=== PATIENT | male | born 1935 | race Caucasian/White ===

== ENCOUNTER → 2016-10-16 | Outpatient (CLI) | payer MEDICARE ==
[2016-10-16 12:47] LABS: BASO ABS # 0.07 K/uL (0-0.2); COMPLETE YES; HEMATOCRIT 44.9 % (42-52); IG% 0.3 %; LYMPH % 30.5 %; LYMPH ABS # 2.16 K/uL (1.2-3.4); MEAN CELL VOLUME 95.9 fL (80-100); MEAN CORPUSCULAR HGB CONC 32.3 g/dl (32-36); MEAN PLATELET VOLUME 10.5 fL (7.4-10.4); MONO % 11.3 %; NEUT % 53.9 %; PLATELET COUNT 238 K/uL (130-400); RED BLOOD COUNT 4.68 M/uL (4.7-6.1); WHITE BLOOD COUNT 7.08 K/uL (4.8-10.8)
[2016-10-16 13:05] LABS: CALCIUM 8.6 mg/dl (8.5-10.1)
[2016-10-16 13:11] LABS: ESTIMATED AVERAGE GLUCOSE 117 mg/dl; HA1C FLAG Normal (Normal)
[2016-10-16 13:21] LABS: ALKALINE PHOSPHATASE 61 U/L (45-117); ALT/SGPT 45 U/L (12-78); AST/SGOT 32 U/L (15-37); BLOOD UREA NITROGEN 16 mg/dl (7-18); CARBON DIOXIDE 32 mmol/L (21-32); CHLORIDE 103 mmol/L (98-107); CHOLESTEROL 156 mg/dl (0-200); CHOLESTEROL/HDL RATIO 3.5; GLUCOSE 90 mg/dl (70-99); HDL CHOLESTEROL 44 mg/dl; POTASSIUM 3.9 mmol/L (3.5-5.1); SODIUM 141 mmol/L (136-145); TRIGLYCERIDES 114 mg/dl (0-150); VERY LOW DENSITY LIPOPROT CALC 23 mg/dl
== END | disposition home or self-care (01) ==
LOC: C.LABSPEC 12:15
PROVIDERS: ATTEND Internal Medicine
DX: I10 Essential (primary) hypertension (principal); E78.5 Hyperlipidemia, unspecified; R73.9 Hyperglycemia, unspecified; M19.90 Unspecified osteoarthritis, unspecified site

== ENCOUNTER → 2017-04-23 | Outpatient (CLI) | payer MEDICARE ==
[2017-04-23 13:30] LABS: BLOOD UREA NITROGEN 13 mg/dl (7-18); BUN/CREATININE RATIO 12.3 (10-20); CALCIUM 8.7 mg/dl (8.5-10.1); CARBON DIOXIDE 32 mmol/L (21-32); CHLORIDE 100 mmol/L (98-107); CREATININE 1.05 mg/dl (0.60-1.40); GLUCOSE 90 mg/dl (70-99); POTASSIUM 3.5 mmol/L (3.5-5.1); SODIUM 137 mmol/L (136-145)
== END | disposition home or self-care (01) ==
LOC: C.LABSPEC 11:55
PROVIDERS: ATTEND Internal Medicine
DX: I10 Essential (primary) hypertension (principal)

== ENCOUNTER 2023-05-19 11:42 | Inpatient (IN) ==
--- OUTSIDE RECORDS SUMMARY | 2023-05-19 11:47 | External Medical Summary | Continuity of Care Document ---
Author Name Unknown Organization [facility] [address] [facility] Address [address] [place], [place] [id number] Care Team Providers Care Installer Name Role Phone Susan Lugo Primary Care Physician [phone] Encounter [facility] [id number] Date(s): 03/13/23 - 03/13/23 [facility] [address], [address] [place] [address] [phone] Encounter Diagnosis Benign hypertension without congestive heart failure(Discharge Diagnosis) - 03/13/23 Osteoarthritis of knees, bilateral(Discharge Diagnosis) - 03/13/23 Unintentional weight loss(Discharge Diagnosis) - 03/13/23 Systolic murmur(Discharge Diagnosis) - 03/13/23 Dementia(Discharge Diagnosis) - 03/13/23 Vaccination declined(Discharge Diagnosis) - 03/13/23 Abnormal weight loss(Final) - Essential (primary) hypertension(Final) - Leukocytosis(Discharge Diagnosis) - 03/13/23 Lymphocytosis(Discharge Diagnosis) - 03/14/23 Atypical lymphocytes present on peripheral blood smear(Discharge Diagnosis) - 03/14/23 Discharge Disposition: Home or Self Care Attending Physician: ARIS Lugo Jessica A Allergies, Adverse Reactions, Alerts No Known Allergies Assessment and Plan Extracted from: Title:annual check in Author:ARIS Lugo Je ssica A Date:03/13/23 1.Benign hypertension with out congestive heart failure Benignhypertension without congestive heart failure is chronicand well controlled, but BP is actuallylow today. Goal SBP <130 and DBP <80 mmHg. Given BP is below 100/60 mmHg, age and comorbidities we will plan to discontinue HCTZ 12.5 mg once daily in order to help prevent falls and dizziness. Written instructions were provided to . We will have him follow-up again in 6 months for recheck as they declined a sooner appointment. 2.Osteoarthritis of knees, bilateral Bilateral osteoarthritis of the knees is chronic and unchanged. Goal is reduced pain with good quality of life. For now patientfeels pain is manageable and symptoms are not bothersome enough to take any OTC medications. Follow-up again in 6 months. 3.Unintentional weight loss Unintentional weight loss is chronic andon review of chart patient has lostslightly more than 5%of his total body weight in the last year. and patient denies any significant changes in routineor eating habits. CBC with differential, TSH, CMP, A1c, ESR, CRPand HIV screen ordered. If labs are unrevealingwould then consider also performing chest x-ray. 4.Systolic murmur Systolic murmur is chronic andin reviewing documentationmurmur is louder today. Patient is asymptomatic from a cardiac standpoint. I did discuss proceeding with echocardiogram, whichat this time he declinesas he admits that if there were something abnormal he would not be interested in any intervention given his age. Wifeagreed as well. Advised to follow-up if he would develop any shortness of breath, exertional dizziness, palpitations, lower extremity edema, abdominal distentionor new symptoms. They agreed. 5.Dementia Dementia is chronic,mild to moderate and has been progressing per history. Wifeis interested in having him try medication and patient was agreeable. We will have him try donepezil 5 mg, 1 tab p.o.nightlyand reviewed that we could consider increasing dose after 1 to 2 months. They did declined to follow-up at that time, but preferred to follow-up again in 6 months. So advised the patient as NOT to be driving due to risk of self injury and/or injury to others. He agreed. 6.Vaccination declined Patient was counseled on and recommended to receive seasonal influenza vaccine, Shingrix seriesand pneumococcal immunizations that he declines. declines them as well. Medications Aspirin Low Dose 81 mg oral delayed release tablet Start: 01/19/21 9:45:00 EDT, 1 tab, PO, Daily Start Date: 01/19/21 Status: Ordered donepezil 5 mg oral tablet Start: 03/13/23 14:23:00 EDT, 1 tab, PO, qhs, Disp# 90 tab, Refills: 3, Pharmacy: [facility]/pharmacy #[id number] Start Date: 03/13/23 Stop Date: 03/07/24 Status: Ordered losartan 100 mg oral tablet Start: 10/05/21 16:28:00 EDT, 1 tab, PO, Daily, Disp# 90 tab, Refills: 3, TAKE 1 TABLET BY MOUTH EVERY DAY, Pharmacy: [id number] Start Date: 10/05/21 Stop Date: 09/30/22 Status: Ordered Metoprolol Succinate ER 50 mg oral tablet, extended release Start: 10/05/21 16:28:00 EDT, 1 tab, PO, Daily, Disp# 90 tab, Refills: 3, TAKE 1 TABLET BY MOUTH EVERY DAY, Pharmacy: [id number] Start Date: 10/05/21 Stop Date: 09/30/22 Status: Ordered Mental Status 03/13/23 Barriers to Learning one year None evide nt Mandatory Health Literacy Documentation Yes Health Literacy Communication Barriers N ever Primary Language Korean Problem List Condition Confirmation Course Effective Dates Status H ealth Status Informant Benign essential HTN Confirmed Active Osteoarthritis of knees, bilateral Confirmed Active Dementia Confirmed Active Skin lesion Confirmed Active Diagnosis Diagnosis Type Effective Dates Health Status Clinical Service Informant Osteoarthritis of knees, bilateral Discharge Diagnosis 03/13/23 Non-Specified Unintentional weight loss Discharge Diagnosis 03/13/23 Non-Specified Benign hypertension without congestive heart failure Discharge Diagnosis 03/13/23 Non-Specified Systolic murmur Discharge Diagnosis 03/13/23 Non-Specified Dementia Discharge Diagnosis 03/13/23 Non-Specified Leukocytosis Discharge Diagnosis 03/13/23 Non-Specified Vaccination declined Discharge Diagnosis 03/13/23 Lymphocytosis Discharge Diagnosis 03/14/23 Non-Specified Atypical lymphocytes present on peripheral blood smear Discharge Diagnosis 03/14/23 Non-Specified Procedures Procedure Date Related Diagnosis Body Site Status None Completed Results Laboratory List Name Date Pathologist Review Smear Panel (PATH REV IEW SMR PKG) 03/13/23 C Reactive Protein, Quantitation (CRP QU ANTITATION) 03/13/23 Complete Blood Count w Differential (CBC ,DIFFH) 03/13/23 Comprehensive Metabolic Panel (COMP META B PANEL) 03/13/23 Erythrocyte Sedimentation Rate (SEDIMENT ATION RATE) 03/13/23 HIV Screen w Reflex (HIV AG/AB SCREENING ) 03/13/23 Hemoglobin A1C (HEMOGLOBIN, A1C) 3 Lipid Profile (LIPOPROTEINS) 03/13/23 Thyroid Stimulating Hormone (TSH) Most recent to oldest [Refer ence Range]: 1 2 CReacProt [<0.50 mg/dL] 1.19 mg/dL *HI* (03/13/23 2:41 PM) eGFR CKD-EPI [>60 mL/min/1.7 3 m2] 55 mL/min/1.73 m2 1 *LOW* (03/13/23 2:41 PM) Estimated Average Glucose 114 mg/dL 2 (03/13/23 2:41 PM) HIV Ag/Ab Screening [NR] NONREACTIVE *Unknown* (03/13/23 2:41 PM) Non-HDL 86 mg/dL 3 (03/13/23 2:41 PM) Smr (Path Rev) Technical portion co mplete. Interpretation to follow. *Unknown* (03/13/23 3:24 PM) Imm. Retics [5.0-25.0 %] 8.5 % (03/13/23 3:24 PM) Polychromasia INCREASED *Unknown* (03/13/23 3:24 PM) Platelet Morphology NORMAL *Unknown* (03/13/23 3:24 PM) Estimated CrCl 43.88 mL/min (03/13/23 3:21 PM) Retic Hgb [30.8-36.6 pg] 33.9 pg 4 (03/13/23 3:24 PM) MPV [9.0-12.2 fL] 8.8 fL *LOW* (03/13/23 3:24 PM) 8.6 fL 5 *LOW* (03/13/23 2:41 PM) Immature Gran% 0.0 % (03/13/23 3:24 PM) PERP ORDERED % (03/13/23 2:41 PM) Neut% 19.0 % (03/13/23 3:24 PM) PERP ORDERED % (03/13/23 2:41 PM) Lymph% 77.0 % 6 (03/13/23 3:24 PM) PERP ORDERED % (03/13/23 2:41 PM) Bowman% 3.0 % (03/13/23 3:24 PM) PERP ORDERED % (03/13/23 2:41 PM) Baso% 0.0 % (03/13/23 3:24 PM) PERP ORDERED % (03/13/23 2:41 PM) Eos% 1.0 % (03/13/23 3:24 PM) PERP ORDERED % (03/13/23 2:41 PM) Immat Gran, Abs [0-0.4 K/uL] 0.00 K/uL (03/13/23 3:24 PM) PERP ORDERED K/uL 7 (03/13/23 2:41 PM) Neut, Abs [2.0-7.7 K/uL] 4.58 K/uL (03/13/23 3:24 PM) PERP ORDERED K/uL (03/13/23 2:41 PM) Lymph, Abs [1.0-3.4 K/uL] 18.55 K/uL *HI* (03/13/23 3:24 PM) PERP ORDERED K/uL (03/13/23 2:41 PM) Bowman, Abs [0-1.0 K/uL] 0.72 K/uL (03/13/23 3:24 PM) PERP ORDERED K/uL (03/13/23 2:41 PM) Baso, Abs [0-0.1 K/uL] 0.00 K/uL (03/13/23 3:24 PM) PERP ORDERED K/uL (03/13/23 2:41 PM) Eos, Abs [0-0.5 K/uL] 0.24 K/uL (03/13/23 3:24 PM) PERP ORDERED K/uL (03/13/23 2:41 PM) Type of Diff: MANUAL *Unknown* (03/13/23 3:24 PM) PERP ORDERED *Unknown* (03/13/23 2:41 PM) RDW [11.5-14.2 %] 13.7 % (03/13/23 3:24 PM) 13.6 % (03/13/23 2:41 PM) Anion Gap [5-14 mmol/L] 7 mmol/L (03/13/23 2:41 PM) Alb [3.5-5.0 g/dL] 4.1 g/dL (03/13/23 2:41 PM) Alk Phos [38-126 unit/L] 99 unit/L (03/13/23 2:41 PM) ALT [<50 unit/L] 24 unit/L (03/13/23 2:41 PM) AST [15-46 unit/L] 37 unit/L (03/13/23 2:41 PM) BUN [7-20 mg/dL] 24 mg/dL *HI* (03/13/23 2:41 PM) Ca [8.4-10.2 mg/dL] 8.8 mg/dL (03/13/23 2:41 PM) Chol/HDL 3 (03/13/23 2:41 PM) Chol [125-200 mg/dL] 121 mg/dL *LOW* (03/13/23 2:41 PM) Cl- [96-107 mmol/L] 101 mmol/L (03/13/23 2:41 PM) HCO3 [22-30 mmol/L] 33 mmol/L *HI* (03/13/23 2:41 PM) Cret [0.70-1.30 mg/dL] 1.26 mg/dL (03/13/23 2:41 PM) ESR [0-40 mm/hr] 48 mm/hr 8 *HI* (03/13/23 2:41 PM) HbA1c [4.0-6.0 %] 5.6 % (03/13/23 2:41 PM) Glu [74-106 mg/dL] 178 mg/dL *HI* (03/13/23:41 PM) Hct [39-48 %] 41.9 % (03/13/23 3:24 PM) 41.6 % (03/13/23 2:41 PM) HDL [>35 mg/dL] 35 mg/dL *LOW* (03/13/23:41 PM) Hgb [13.0-17.0 g/dL] 13.4 g/dL (03/13/23 3:24 PM) 13.3 g/dL (03/13/23 2:41 PM) K [3.5-5.1 mmol/L] 4.6 mmol/L (03/13/23 2:41 PM) LDL Chol, Calculated [50-130 mg/dL] 63 mg/dL (03/13/23 2:41 PM) MCH [28-33 pg] 31.9 pg (03/13/23 3:24 PM) 32.4 pg (03/13/23 2:41 PM) MCHC [32-36 g/dL] 32.0 g/dL (03/13/23 3:24 PM) 32.0 g/dL (03/13/23 2:41 PM) MCV [81-96 fL] 99.8 fL *HI* (03/13/23 3:24 PM) 101.2 fL *HI* (03/13/23 2:41 PM) Na [137-145 mmol/L] 141 mmol/L (03/13/23 2:41 PM) Plts [150-350 K/uL] 246 K/uL (03/13/23 3:24 PM) 230 K/uL (03/13/23 2:41 PM) RBC [4.40-5.60 M/uL] 4.20 M/uL *LOW* (03/13/23 3:24 PM) 4.11 M/uL *LOW* (03/13/23 2:41 PM) Retics (abs) [16.7-96.7 K/uL] 73.1 K/uL (03/13/23 3:24 PM) Retic (%) [0.40-2.05 %] 1.74 % (03/13/23 3:24 PM) T Bili [0.2-1.3 mg/dL] 0.6 mg/dL (03/13/23 2:41 PM) Prot [6.3-8.2 g/dL] 7.5 g/dL (03/13/23 2:41 PM) TG [<200 mg/dL] 115 mg/dL (03/13/23 2:41 PM) TSH [0.47-4.68 uIU/mL] 1.34 uIU/mL 9 (03/13/23 2:41 PM) WBC [4.0-10.4 K/uL] 24.09 K/uL *HI* (03/13/23 3:24 PM) 23.58 K/uL *HI* (03/13/23 2:41 PM) 1Result Comment: Testing Performed By: Dept [facility]ology [facility] [address], [address] [place] [address] 2Result Comment: Testing Performed By: Dept [facility]ology [facility] [address], [address], [place] [address] 3Result Comment: Testing Performed By: Dept [facility]ology [facility] [address], [address] [place], [place] [address] 4Result Comment: Testing Performed By: Dept [facility]ology [facility] [address], [address], [place] [address] 5Result Comment: [facility], [address] [facility], [place] [address] 6Result Comment: [facility] CLL Lymphs 7Result Comment: Testing Performed By: Dept [facility]ology [facility] [address], [address], [place] [address] 8Result Comment: Testing Performed By: [facility], [address] [place], [place] [address] 9Result Comment: Testing Performed By: Dept of [facility]ology [facility] [address], [address], [place] [address] Vital Signs Most recent to oldest [Reference Range]: 1 Patient Weight 87.4 kg (03/13/23 1:58 PM) Temperature [36.5-37.9 DegC] 36.6 DegC (03/13/23 1:58 PM) Heart Rate 82 bpm (03/13/23 1:58 PM) Respiratory Rate 20 br/min (03/13/23 1:58 PM) Blood Pressure 98/56mmHg (03/13/23 1:58 PM) Cuff Pulse Pressure 42 mmHg (03/13/23 1:58 PM) BP Location # 1 Left Arm, Manual (03/13/23 1:58 PM) Social History Social History Type Response Tobacco Former smoker, Cigar ettes Smoking Status Never smoked cigaret jeremiah Sex Male [facility] Note * ARIS Lugo, Susan Smith: PERFORM Event Display: [facility] Note Authored Date: Chief Complaint Routine check up History of Present Illness Shamir presents with his , Milana,for follow-up of chronic HTN without history of CHF, bilateral osteoarthritis of the knees and dementia. HTN without history of CHF is chronic and well controlled. He does not monitor his BP at home.Compliant with hydrochlorothiazide 12.5 mg daily, [id number] mg daily, metoprololsuccinate 50 mg daily. Former smoker, but quit more than 30 years ago. No EtOH or recreational drug use.No regular exercise.+ dry cough per intermittently x 3-4 months. No chest pain, SOB, palpitations, tachycardia, dizziness, lightheadedness, weakness, near syncope, syncope, nausea, vomiting, diarrhea, constipation, LE edema, headaches, blurred vision, loss of vision, confusion or epistaxis. Bilateral knee osteoarthritis is chronic andhe says "it does not bother me." notes that heonly seems to have pain when walking,climbing stairs and attempting to stand after prolonged sitting. Pain when walking is a 2-3/10. No OTC medications tried. Does not follow with orthopedics. Chronic dementiahas gotten worseper his . Struggles with significant short-term memory loss. For example, Melecio today he is asked her multiple times when he is going to the doctor,why is he going to the doctor,askedwhat day it is, what year it is and how old he is, which is o ften a daily occurrence. He has not had any mood changes and is overall very happy. He and wifelive together. Their childrendo livewithin walking distance in front of their home.Children check in on themdaily. Wifedoes not allow him to drive on his own, but she will have him drive her short distances. She tells himwhere to go and where to turn. If he were to be by himself he would not know how to get places or how to get out of a parking lot. [facility], but not recently. Wifewould be interested in having him start medication that may help with memory. Also, weight is down 5.5 kg since the time of his last appointment in March 2022. doesnot feel anything has significantly changedin their routine. He eats 3 meals per day and rarelysnacks. Drinks primarily soda and water. Upon questioning, has noticed a dry cough intermittently for 3 to 4 months. Former smoker. No fever, chills, night sweats,nocturnal pain, nausea, vomiting, diarrhea, change in bowel habits, melena, hematochezia, pallor, petechial rashes, presyncope, syncope, SOB, wheezing, hemoptysis, palpitations or tachycardia. Review of Systems ROS:All other systems negative, except HPI. Physical Exam Vitals & Measurements T:36.6C HR:82(Monitored) RR:20 BP:98/56 SpO2:97% WT:87.4kg WT:87.400kg(Dosing) PHQ2 Data(Data Documented on:03/13/2023 13:58) Emotional health assessment NEGATIVE General: Alert and oriented, No acute distress.Pleasant elderly male w/ . Oriented to person and place, but not time. Eye: Pupils are equal, round and reactive to light, Extraocular movements are intact, Normal conjunctiva. HENT: Normocephalic. Neck: Supple, No lymphadenopathy, No thyromegaly. Respiratory: Lungs are clear to auscultation, Respirations are non-labored, Breath sounds are equal, Symmetrical chest wall expansion. Cardiovascular: Normal rate, Regular rhythm, + grade II-III/ MATTHEW loudest at 2nd ICS, RUSB, but audible throught precordium. No gallop, Good pulses equal in all extremities, Normal peripheral perfusion. No LE edema. Abdomen: Normoactive BS x 4. Soft. No tenderness, palpable masses or organomegaly. Lymphatics: No submandibular, anterior or posterior cervical adenopathy palpable. Musculoskeletal Normal gait. Integumentary: Warm, Allyn, No pallor. Neurologic: Alert, Oriented, Cranial Nerves II-XII are grossly intact. Cognition and Speech: Oriented, Speech clear and coherent, Functional cognition intact. Psychiatric: Cooperative, Appropriate mood & affect, Normal judgment, Nonsuicidal. Assessment/Plan 1.Benign hypertension without congestive heart failure Benignhypertension without congestive heart failure is chronicand well controlled, but BP is actuallylow today. Goal SBP <130 and DBP <80 mmHg. Given BP is below 100/60 mmHg, age and comorbidities we will plan to discontinue HCTZ 12.5 mg once daily in order to help prevent falls anddizziness. Written instructions were provided to . We will have him follow-up again in 6 mon ths for recheck as they declined a sooner appointment. 2.Osteoarthritis of knees, bilateral Bilateral osteoarthritis of the knees is chronic and unchanged. Goal is reduced pain with good quality of life. For now patientfeels pain is manageable and symptoms are not bothersome enough totake any OTC medications. Follow-up again in 6 months. 3.Unintentional weight loss Unintentional weight loss is chronic andon review of chart patient has lostslightly more than 5%of his total body weight in the last year. and patient denies any significant changes in routineor eating habits. CBC with differential, TSH, CMP, A1c, ESR, CRPand HIV screen ordered. If labs are unrevealingwould then consider also performing chest x-ray. 4.Systolic murmur Systolic murmur is chronic andin reviewing documentationmurmur is louder today. Patient is asymptomatic from a cardiac standpoint. I did discuss proceeding with echocardiogram, whichat thistime he declinesas he admits that if there were something abnormal he would not be interested in any intervention given his age. Wifeagreed as well. Advised to follow-up if he would develop any shortness of breath, exertional dizziness, palpitations, lower extremity edema, abdominal distentionor new symptoms. They agreed. 5.Dementia Dementia is chronic,mild to moderate and has been progressing per history. Wifeis interested in having him try medication and patient was agreeable. We will have him try donepezil 5 mg, 1 tabp.o.nightlyand reviewed that we could consider increasing dose after 1 to 2 months. They did declined to follow-up at that time, but preferred to follow-up again in 6 months. So advised the pa tient as NOT to be driving due to risk of self injury and/or injury to others. He agreed. 6.Vaccination declined Patient was counseled on and recommended to receive seasonal influenza vaccine, Shingrix seriesand pneumococcal immunizations that he declines. declines them as well. Problem List/Past Medical History Ongoing Benign essential HTN Dementia Osteoarthritis of knees, bilateral Skin lesion Procedure/Surgical History None Medications aspirin(Aspirin Low Dose 81 mg oral delayed release tablet), 81 mg= 1 tab, PO, Daily donepezil(donepezil 5 mg oral tablet), 5 mg= 1 tab, PO, qhs, 3 refills losartan(losartan 100 mg oral tablet), 100 mg= 1 tab, PO, Daily, 3 refills metoprolol(Metoprolol Succinate ER 50 mg oral tablet, extended release), 50 mg= 1 tab, PO, Daily, 3refills Allergies NKA Social History Smoking Status Never smoked cigarettes Alcohol - Denies Alcohol Use Employment/School Status:Retired Exercise - Does not exercise Substance Abuse - Denies Substance Abuse Tobacco Use:Former smoker Type:Cigarettes Family History Family history is negative Recommendations Health Maintenance Pending(in the next year) OverDue Body Mass Index due10/05/22and every 1year Adult Influenza Vaccine due11/23/22and every 1year Due Adult COVID-19 Vaccination due03/13/23Unknown Frequency Adult Tdap/Td Vaccine due03/13/23Unknown Frequency Medicare Annual Wellness Visit due03/13/23and every 1year Pneumococcal Vaccine Older Adults due03/13/23One-time only Shingles Vaccine due03/13/23One-time only Satisfied(in the past 1 year) Satisfied Lipid Screening on03/13/23.Satisfied by Contributor[facility]system, [facility] * MD Elise Olajumoke O: VERIFY MD Elise Olajumoke O: VERIFY, PERFORM Event Display: CP PB Part type Authored Date: Peripheral blood * MD Elise Olajumoke O: VERIFY MD Elise Olajumoke O: VERIFY, PERFORM Event Display: CP PB Dx Authored Date: RBCs are macrocytic and normochromic. There is lymphocytosis that is composed of mostly small mature appearing lymphoid cells with abnormal nuclear chromatin pattern. There are increased smudge cells. Prolymphocytes are present (~20%). Platelets are normal in number and morphology. The lymphocytosis is suggestive of a lymphoproliferative disorder. Flow cytometry recommended. Sirisha Elise MD (Electronically signed by) Verified: 03/14/2023 11:11 EDT Performing Location: [facility] Patient Care team information Care Team Personnel Name: ARIS Lugo Jessica A Position: Physician Asst Exmpt - Family Med Member Role: Primary Care Provider Address: Address: [address] [place] [id number]
--- NOTE | 2023-05-19 12:43 | XRay Report ---
XR chest 1V portable CLINICAL HISTORY: Dyspnea TECHNIQUE: Single frontal radiograph of the chest was obtained. Comparison: None available at the time of this dictation. FINDINGS: No lines and tubes are seen. The cardiomediastinal silhouette is normal. Prominence and cephalization of the vasculature is seen. Airspace opacities in the left lower lung. Trace left pleural effusion. IMPRESSION: 1. Cardiomegaly and mild pulmonary edema. 2. Left lower lung airspace opacity likely represent atelectasis with or without superimposed pneumo jordan and/or aspiration. ACT 112: Negative or not required by law. Electronically signed by: Triston Riley M.D. 05/19/2023 12:41 PM
[2023-05-19 12:51] LABS: Albumin Globulin Ratio 1.3 (0.9-2); Albumin Level 3.8 gm/dl (3.4-5.0); Bilirubin,Total 0.9 mg/dl (0.2-1.0); Calcium 8.5 mg/dl (8.6-10.3); Est GFR (African American) 66.4 ml/min; Est GFR (Non-African American) 57.3 ml/min; Potassium 4.3 mmol/L (3.5-5.1); Total Protein 6.8 gm/dl (6.0-8.3)
--- NOTE | 2023-05-19 13:01 | Emergency Department Note ---
Impression & Plan Acute non-ST elevation myocardial infarction (NSTEMI) ED Provider Note NAME: SHAMIR OLIVAREZ AGE: 87 SEX: M : 1935 ARRIVES VIA: Walk-In INFORMANT: Patient, ED PROVIDER(S): Andrez Pérez MD CHIEF COMPLAINT: Shortness of breath, back pain HPI: This is a pleasant 87-year-old gentleman presenting for shortness of breath and back pain. Patient is coming by his 2 daughters who state that last night, their mother was concerned and the patient was complaining about back pains, in the middle of his back. He also has some slight shortness of breath associated with this as well. He has not had any nausea or vomiting. Denies any history of cardiac disease, COPD, blood clots in the past. No fevers, chills. No one is sick around him. ROS: See above HPI for pertinent positives & negatives. A total of 10 systems reviewed and were otherwise negative. PAST MEDICAL HISTORY: See Below PAST SURGICAL HISTORY: See Below FAMILY HISTORY: See Below SOCIAL HISTORY: See Below HOME MEDICATIONS: See Below ALLERGIES: See Below VITALS: See Below PHYSICAL EXAMINATION: General: resting comfortably in no acute distress Head: Normocephalic and atraumatic Eyes: Normal inspection, extraocular muscles intact Ear, nose, throat: Normal external exam Neck: Normal range of motion Respiratory: lungs clear to auscultation bilaterally Cardiovascular: Regular rate/rhythm, no murmur GI: soft, nontender, no guarding or rebound Extremities: nontender, moves all extremities Neuro: The patient awake and alert, appropriately conversive, no focal deficits, symmetric faces Skin: Warm, dry, and intact MEDICAL DECISION MAKING: This is an 87-year-old male presenting for shortness of breath/back pain. Patient had moderate back pain last night, completely resolved at this time. He also complained of shortness of breath which also resolved at this time. -The patient has complete resolved symptoms at this time -Consider ACS, PE, dissection, pneumonia -Vital signs reviewed and within normal limits aside from borderline tachycardia -ECG independently interpreted by me with normal sinus rhythm, rate of 90, left axis deviation, normal NM, left bundle branch block, normal QTc, no ST segment elevations consistent with STEMI criteria -Patient has an elevated troponin over 3000 at this time, he continues to deny any chest pain -With history of shortness of breath, back pain, will rule out dissection or PE -CTA of the chest reveals no PE, CT of the ab/pelvis reveals no dissection, there is ascites noted -Heparin administered for NSTEMI -Patient admitted to hospitalist service Differential diagnosis: See above ER treatment provided: See below Diagnostics interpreted by me: ECG: See above Cardiac Monitoring: An order was placed for continuous cardiac monitoring. The monitor shows a rate of 98 with sinus rhythm. Laboratory studies: As stated above and show below. Imaging studies: See below. Critical Care Note: I have personally spent 42 minutes of critical care time in the direct management of this patient. This includes bedside care, interpretation of diagnostic studies, and testing, discussion with consultants, patient, and family members, and other required patient management activities. This 42 minutes is in excess of all separately billable procedures. Past Med/Surg History Medical History (Updated 05/19/23 @ 19:47 by Andrez Pérez MD) Leukemia Alzheimer disease Hypertension Social History Smoking Status: Former smoker Feels Safe at Home: Yes Allergies Allergies Allergy/AdvReac Type Severity Reaction Status Date / Time No Known Allergies Allergy Unverified 12/10/17 20:13 Home Meds Home Medications Medication Instructions Recorded Confirmed aspirin 81 mg capsule 81 mg PO DAILY 05/19/23 05/19/23 donepezil 5 mg tablet (Aricept) 5 mg PO HS 05/19/23 05/19/23 hydrochlorothiazide 12.5 mg tablet 12.5 mg 05/19/23 losartan 100 mg tablet 100 mg PO DAILY 05/19/23 05/19/23 metoprolol succinate 50 mg 50 mg PO DAILY 05/19/23 05/19/23 tablet,extended release 24 hr Results & Data (ED) Vital Signs Vital Signs - 24 hr 05/19/23 11:44 05/19/23 12:06 05/19/23 12:06 Temperature 36.6 C Temperature Source Temporal Artery Scan Pulse Rate 94 H 92 H Pulse Rate [Apical] 88 Pulse Rhythm Regular Pulse Rhythm [Apical] Regular Pulse Strength [Apical] Normal Respiratory Rate 19 16 Respiratory Effort / Characteristics Non-Labored Spontaneous Respiratory Depth Normal Respiratory Pattern Regular Blood Pressure 150/93 H Blood Pressure [Right Arm] 142/87 H Blood Pressure Mean 112 Blood Pressure Mean [Right Arm] 105 Blood Pressure Position [Right Arm] Semi-fowlers Pulse Oximetry 94 94 94 Oxygen Delivery Method Room Air Room Air Room Air Sepsis Recent Fever Within 48 Hours No Sepsis New/Unexplained Change in Mental Status N/A Sepsis Action Taken by Nursing No Action Required 05/19/23 12:08 05/19/23 12:19 05/19/23 12:51 Temperature Temperature Source Pulse Rate 93 H Pulse Rate [Apical] 88 Pulse Rhythm Pulse Rhythm [Apical] Regular Pulse Strength [Apical] Normal Respiratory Rate 19 Respiratory Effort / Characteristics Non-Labored Spontaneous Respiratory Depth Normal Respiratory Pattern Regular Blood Pressure Blood Pressure [Right Arm] 142/87 H Blood Pressure Mean Blood Pressure Mean [Right Arm] 105 Blood Pressure Position [Right Arm] Semi-fowlers Pulse Oximetry 94 94 Oxygen Delivery Method Room Air Room Air Sepsis Recent Fever Within 48 Hours Sepsis New/Unexplained Change in Mental Status Sepsis Action Taken by Nursing 05/19/23 14:34 05/19/23 15:00 Temperature Temperature Source Pulse Rate Pulse Rate [Apical] 84 95 H Pulse Rhythm Pulse Rhythm [Apical] Regular Pulse Strength [Apical] Normal Respiratory Rate 16 18 Respiratory Effort / Characteristics Non-Labored Spontaneous Non-Labored Spontaneous Respiratory Depth Normal Normal Respiratory Pattern Regular Regular Blood Pressure Blood Pressure [Right Arm] 129/95 153/101 H Blood Pressure Mean Blood Pressure Mean [Right Arm] 106 118 Blood Pressure Position [Right Arm] Semi-fowlers Semi-fowlers Pulse Oximetry 93 94 Oxygen Delivery Method Room Air Room Air Sepsis Recent Fever Within 48 Hours Sepsis New/Unexplained Change in Mental Status Sepsis Action Taken by Nursing Laboratory Data 05/19/23 12:10 05/19/23 12:10 Lab Results 05/19/23 05/19/23 05/19/23 Range/Units 12:10 13:09 14:05 WBC 24.98 H (4.8-10.8) K/ul RBC 4.01 L (4.70-6.10) M/uL Hgb 12.9 L (14.0-18.0) g/dl Hct 40.5 L (42.0-52.0) % MCV 101.0 H (80.0-100.0) fL MCH 32.2 (25.0-34.0) pg MCHC 31.9 L (32.0-36.0) g/dL RDW Std Deviation 50.5 H (36.4-46.3) fL RDW Coeff of Alysha 13.4 (11.5-14.5) % Plt Count 206 (130-400) K/uL MPV 8.6 L (9.4-12.4) fL Immature Gran % (Auto) 0.6 % Neut % (Auto) 25.1 % Lymph % (Auto) 66.3 % [place] % (Auto) 6.8 % Eos % (Auto) 0.6 % Baso % (Auto) 0.6 % Neut # (Auto) 6.28 (1.40-6.50) K/uL Lymph # (Auto) 16.56 H (1.20-3.40) K/uL [place] # (Auto) 1.70 H (0.11-0.59) K/uL Eos # (Auto) 0.14 (0.00-0.50) K/uL Baso # (Auto) 0.15 (0.00-0.20) K/uL Immature Gran # (Auto) 0.15 (0.01-0.20) K/uL RBC Morphology Unremarkable PT 11.0 (9.0-12.0) Seconds INR 1.0 (0.9-1.1) APTT 26 (21-31) Seconds PTT Ratio 0.9 D-Dimer 2320 H* (0-500) ug/L FEU Sodium 141 (136-145) mmol/L Potassium 4.3 (3.5-5.1) mmol/L Chloride 102 (98-107) mmol/L Carbon Dioxide 32 (21-32) mmol/L Anion Gap 7 (3-11) BUN 17 (6-23) mg/dl Creatinine 1.13 (0.6-1.4) mg/dl Est Cr Clr Drug Dosing 50.0 ml/min Est GFR ( Amer) 66.4 ml/min Est GFR (Non-Af Amer) 57.3 ml/min BUN/Creatinine Ratio 15.0 (10-20) Glucose 94 (70-99(Fasting)) mg/dl Calcium 8.5 L (8.6-10.3) mg/dl Magnesium 2.0 (1.7-2.4) mg/dl Total Bilirubin 0.9 (0.2-1.0) mg/dl AST 50 H (13-39) U/L ALT 19 (7-52) U/L Alkaline Phosphatase 106 H (34-104) U/L Troponin I High Sens 3421.8 H* 4714.5 H* D (0-20) pg/ml B-Natriuretic Peptide 611 H (0-100) pg/ml Total Protein 6.8 (6.0-8.3) gm/dl Albumin 3.8 (3.4-5.0) gm/dl Globulin 3.0 (2.5-4.0) gm/dl Albumin/Globulin Ratio 1.3 (0.9-2) Procalcitonin 0.42 (0-0.5) ng/ml Urine Color Urine Appearance (Clear) Urine pH (4.5-7.5) Ur Specific [place] (1.000-1.030) Urine Protein (Negative) Urine Glucose (UA) (Negative) Urine Ketones (Negative) Urine Blood (Negative) Urine Nitrite (Negative) Urine Bilirubin (Negative) Urine Urobilinogen (Negative) Ur Leukocyte Esterase (Negative) Adenovirus (PCR) Not Detected (NotDetected) B. pertussis DNA (PCR) Not Detected (NotDetected) B.parapertussis DNA PCR Not Detected (NotDetected) C. pneumoniae DNA (PCR) Not Detected (NotDetected) Coronavirus OC43 (PCR) Not Detected (NotDetected) Coronavirus HKU1 (PCR) Not Detected (NotDetected) Coronavirus 229E (PCR) Not Detected (NotDetected) SARS-CoV-2 (PCR) Not Detected (NotDetected) Coronavirus NL63 (PCR) Not Detected (NotDetected) Human Metapneumovir PCR Not Detected (NotDetected) Influenza Type A (PCR) Not Detected (NotDetected) Influenza Type B (PCR) Not Detected (NotDetected) M. pneumoniae (PCR) Not Detected (NotDetected) Parainfluenza 1 (PCR) Not Detected (NotDetected) Parainfluenza 2 (PCR) Not Detected (NotDetected) Parainfluenza 3 (PCR) Not Detected (NotDetected) Parainfluenza 4 (PCR) Not Detected (NotDetected) RSV (PCR) Not Detected (NotDetected) Entero/Rhino (PCR) Not Detected (NotDetected) 05/19/23 Range/Units 14:32 WBC (4.8-10.8) K/ul RBC (4.70-6.10) M/uL Hgb (14.0-18.0) g/dl Hct (42.0-52.0) % MCV (80.0-100.0) fL MCH (25.0-34.0) pg MCHC (32.0-36.0) g/dL RDW Std Deviation (36.4-46.3) fL RDW Coeff of Alysha (11.5-14.5) % Plt Count (130-400) K/uL MPV (9.4-12.4) fL Immature Gran % (Auto) % Neut % (Auto) % Lymph % (Auto) % [place] % (Auto) % Eos % (Auto) % Baso % (Auto) % Neut # (Auto) (1.40-6.50) K/uL Lymph # (Auto) (1.20-3.40) K/uL [place] # (Auto) (0.11-0.59) K/uL Eos # (Auto) (0.00-0.50) K/uL Baso # (Auto) (0.00-0.20) K/uL Immature Gran # (Auto) (0.01-0.20) K/uL RBC Morphology PT (9.0-12.0) Seconds INR (0.9-1.1) APTT (21-31) Seconds PTT Ratio D-Dimer (0-500) ug/L FEU Sodium (136-145) mmol/L Potassium (3.5-5.1) mmol/L Chloride (98-107) mmol/L Carbon Dioxide (21-32) mmol/L Anion Gap (3-11) BUN (6-23) mg/dl Creatinine (0.6-1.4) mg/dl Est Cr Clr Drug Dosing ml/min Est GFR ( Amer) ml/min Est GFR (Non-Af Amer) ml/min BUN/Creatinine Ratio (10-20) Glucose (70-99(Fasting)) mg/dl Calcium (8.6-10.3) mg/dl Magnesium (1.7-2.4) mg/dl Total Bilirubin (0.2-1.0) mg/dl AST (13-39) U/L ALT (7-52) U/L Alkaline Phosphatase (34-104) U/L Troponin I High Sens (0-20) pg/ml B-Natriuretic Peptide (0-100) pg/ml Total Protein (6.0-8.3) gm/dl Albumin (3.4-5.0) gm/dl Globulin (2.5-4.0) gm/dl Albumin/Globulin Ratio (0.9-2) Procalcitonin (0-0.5) ng/ml Urine Color Yellow Urine Appearance Clear (Clear) Urine pH 7.0 (4.5-7.5) Ur Specific [place] > 1.045 H (1.000-1.030) Urine Protein Negative (Negative) Urine Glucose (UA) Negative (Negative) Urine Ketones Negative (Negative) Urine Blood Negative (Negative) Urine Nitrite Negative (Negative) Urine Bilirubin Negative (Negative) Urine Urobilinogen Negative (Negative) Ur Leukocyte Esterase Negative (Negative) Adenovirus (PCR) (NotDetected) B. pertussis DNA (PCR) (NotDetected) B.parapertussis DNA PCR (NotDetected) C. pneumoniae DNA (PCR) (NotDetected) Coronavirus OC43 (PCR) (NotDetected) Coronavirus HKU1 (PCR) (NotDetected) Coronavirus 229E (PCR) (NotDetected) SARS-CoV-2 (PCR) (NotDetected) Coronavirus NL63 (PCR) (NotDetected) Human Metapneumovir PCR (NotDetected) Influenza Type A (PCR) (NotDetected) Influenza Type B (PCR) (NotDetected) M. pneumoniae (PCR) (NotDetected) Parainfluenza 1 (PCR) (NotDetected) Parainfluenza 2 (PCR) (NotDetected) Parainfluenza 3 (PCR) (NotDetected) Parainfluenza 4 (PCR) (NotDetected) RSV (PCR) (NotDetected) Entero/Rhino (PCR) (NotDetected) Administered Medications Atorvastatin Calcium (Atorvastatin 40 Mg Tab) 40 mg PO QAM [facility] Stop: 06/18/23 16:59 Last Admin: 05/19/23 17:54 Dose: 40 mg Documented By: LCD Heparin Sodium/Dextrose (Heparin Sodium/Dextrose) 25,000 units in 500 mls @ 29 mls/hr IV .[id number] [facility]; Protocol Stop: 06/18/23 14:44 Last Admin: 05/19/23 14:41 Dose: 1,450 units/hr, 29 mls/hr Documented By: DIONNA Co-signed By: PAIGE Metoprolol Succinate (Metoprolol Succ 50mg Ext Rel Tab) 50 mg PO DAILY DANIELLA Stop: 06/18/23 17:29 Last Admin: 05/19/23 17:54 Dose: 50 mg Documented By: OANH Discontinued Medications Heparin Sodium (Porcine) (Heparin Sod (Porcine) 1000 Unit/Ml) 6,000 units IV NOW ONE Stop: 05/19/23 14:35 Last Admin: 05/19/23 14:41 Dose: 6,000 units Documented By: DIONNA Co-signed By: PAIGE Ioversol (Optiray 320 125ml) 119 ml IV ONCE ONE Stop: 05/19/23 13:29 Last Admin: 05/19/23 13:28 Dose: 119 ml Documented By: BECKY Imaging Data Radiologist's Impression: Chest X-Ray 05/19/23 12:03 XR chest 1V portable CLINICAL HISTORY: Dyspnea TECHNIQUE: Single frontal radiograph of the chest was obtained. Comparison: None available at the time of this dictation. FINDINGS: No lines and tubes are seen. The cardiomediastinal silhouette is normal. Prominence and cephalization of the vasculature is seen. Airspace opacities in the left lower lung. Trace left pleural effusion. IMPRESSION: 1. Cardiomegaly and mild pulmonary edema. 2. Left lower lung airspace opacity likely represent atelectasis with or without superimposed pneumonia and/or aspiration. ACT 112: Negative or not required by law. Electronically signed by: Triston Riley M.D. 05/19/2023 12:41 PM Abdomen/Pelvis CTA 05/19/23 13:04 CT angio abdomen pelvis w con CLINICAL HISTORY: dissection TECHNIQUE: Multidetector row helical CT of the abdomen and pelvis was performed, following intravenous administration of iodinated contrast. No oral contrast was administered. Automated dose lowering techniques and/or adjustment according to patient size were utilized for this exam. Coronal and sagittal reformations were obtained. MIP and 3D volume rendered reconstructions were obtained. Comparison: None available at the time of this dictation. FINDINGS: Lower chest: For findings above the diaphragm, please see CT chest performed same day. Liver: Unremarkable. No focal lesions are seen. Gallbladder and biliary tree: Cholelithiasis is seen without evidence of cholecystitis. No intra- or extrahepatic biliary ductal dilation. Pancreas: Unremarkable, no focal lesions. Spleen: Unremarkable. Adrenals: Unremarkable. Kidneys and ureters: Renal cysts are seen. Bladder: Diffuse homogeneous wall thickening is seen. Reproductive organs: Prostatomegaly is seen. Bowel: The appendix is normal. Lymph nodes Retroperitoneal: Retroperitoneal lymph nodes measure up to 13 mm in short axis. Prominent brayan hepatis nodes are also seen. Pelvic: Unremarkable. Mesenteric: Subcentimeter lymph nodes are noted. Peritoneum: Mild ascites is seen. Abdominal wall: Unremarkable. Bones: Degenerative changes in the visualized spine. CT angiogram: The abdominal aortic contours appear intact without evidence of aneurysmal dilatation and/or dissection. There is evidence of scattered atherosclerotic calcifications of the abdominal aorta and its major branches. The origins of the celiac axis, superior mesenteric, inferior mesenteric and bilateral renal arteries are patent. IMPRESSION: 1. No acute abnormalities in particular no evidence of aortic dissection. 2. Retroperitoneal lymphadenopathy may be infectious/inflammatory. Clinical correlation is recommended. Prominence of the bladder wall may be due to underdistention or chronic outlet obstruction, correlation with urinalysis is recommended to exclude UTI. ACT 112: Negative or not required by law. Electronically signed by: Triston Riley M.D. 05/19/2023 2:05 PM Chest CTA 05/19/23 13:04 CT angio chest wo/w con CLINICAL HISTORY: PE TECHNIQUE: Multidetector row helical CT of the chest was performed with angiographic protocol. Coronal and sagittal reformations were obtained. Coronal and sagittal MIPS were obtained from the axial data set and were submitted for review. Automated dose lowering techniques and/or adjustment according to patient size were utilized for this exam. CT DOSE: 2692.7 mGy.cm Comparison: None available at the time of this dictation. FINDINGS: Lungs and pleura: Left lung atelectasis is seen. No suspicious pulmonary nodules. Heart and pericardium: Heart size is normal. No pericardial effusion. Vessels: No evidence of pulmonary embolism. Mediastinum and chioma: Unremarkable. Chest wall and lower neck: Subcentimeter axillary lymph nodes noted. Abdomen: For findings below the diaphragm, please refer to CT of the abdomen dated the same. Bones: Degenerative changes in the thoracic spine. IMPRESSION: No acute abnormality and in particular no evidence of pulmonary embolus. ACT 112: Negative or not required by law. Electronically signed by: Triston Riley M.D. 05/19/2023 1:51 PM Discharge Plan Visit Data Chief Complaint: Shortness of Breath/Dyspnea Stated Complaint: BACK PAIN, SHORTNESS OF BREATH ED Provider: Andrez Pérez Discharge Problem: Acute non-ST elevation myocardial infarction (NSTEMI) Patient Disposition: Admitted As Inpatient Discharge Instructions Interventions: ED Discharge Assessment Last Done: 05/19/23 16:42
[2023-05-19 13:04] LABS: D Dimer 2320 ug/L FEU (0-500)
[2023-05-19 13:13] LABS: Hematocrit (blood only) 40.5 % (42.0-52.0); Hemoglobin 12.9 g/dl (14.0-18.0); Mean Corpuscular Hemoglobin 32.2 pg (25.0-34.0); Mean Corpuscular Hgb Conc 31.9 g/dL (32.0-36.0); Mean Platelet Volume 8.6 fL (9.4-12.4); Platelet Count 206 K/uL (130-400); RDW Coefficient of Variation 13.4 % (11.5-14.5); RDW Standard Deviation 50.5 fL (36.4-46.3); Red Blood Count 4.01 M/uL (4.70-6.10); White Blood Count 24.98 K/ul (4.8-10.8)
[2023-05-19 13:19] LABS: Adenovirus PCR Not Detected (NotDetected); Bordetella parapertussis PCR Not Detected (NotDetected); Bordetella pertussis PCR Not Detected (NotDetected); Chlamydia pneumoniae PCR Not Detected (NotDetected); Coronavirus 229E PCR Not Detected (NotDetected); Coronavirus CoV-2 (COVID19)PCR Not Detected (NotDetected); Coronavirus HKU1 PCR Not Detected (NotDetected); Coronavirus NL63 PCR Not Detected (NotDetected); Coronavirus OC43PCR Not Detected (NotDetected); Human Metapneumovirus PCR Not Detected (NotDetected); Influenza A PCR Not Detected (NotDetected); Influenza B PCR Not Detected (NotDetected); Mycoplasma pneumoniae PCR Not Detected (NotDetected); Parainfluenza Virus 1 PCR Not Detected (NotDetected); Parainfluenza Virus 2 PCR Not Detected (NotDetected); Parainfluenza Virus 3 PCR Not Detected (NotDetected); Parainfluenza Virus 4 PCR Not Detected (NotDetected); Respiratory Syncytial VirusPCR Not Detected (NotDetected); Rhinovirus/Enterovirus PCR Not Detected (NotDetected)
[2023-05-19] MEDS ORDERED: OPTIRAY 320 125ml IV ONE (13:28)
[2023-05-19 13:35] LABS: Basophils # (auto) 0.15 K/uL (0.00-0.20); Basophils % (auto) 0.6 %; Eosinophils # (auto) 0.14 K/uL (0.00-0.50); Eosinophils % (auto) 0.6 %; Immature Granulocytes # (auto) 0.15 K/uL (0.01-0.20); Immature Granulocytes % (auto) 0.6 %; Lymphocytes # (auto) 16.56 K/uL (1.20-3.40); Lymphocytes % (auto) 66.3 %; Monocytes % (auto) 6.8 %; Neutrophils # (auto) 6.28 K/uL (1.40-6.50); Neutrophils % (auto) 25.1 %; RBC Morphology Unremarkable
--- NOTE | 2023-05-19 13:53 | CT Scan Report ---
CT angio chest wo/w con CLINICAL HISTORY: PE TECHNIQUE: Multidetector row helical CT of the chest was performed with angiographic protocol. [place] l and sagittal reformations were obtained. Coronal and sagittal MIPS were obtained from the axial adeel a set and were submitted for review. Automated dose lowering techniques and/or adjustment according to patient size were utilized for this exam. CT DOSE: 2692.7 mGy.cm Comparison: None available at the time of this dictation. FINDINGS: Lungs and pleura: Left lung atelectasis is seen. No suspicious pulmonary nodules. Heart and pericardium: Heart size is normal. No pericardial effusion. Vessels: No evidence of pulmonary embolism. Mediastinum and chioma: Unremarkable. Chest wall and lower neck: Subcentimeter axillary lymph nodes noted. Abdomen: For findings below the diaphragm, please refer to CT of the abdomen dated the same. Bones: Degenerative changes in the thoracic spine. IMPRESSION: No acute abnormality and in particular no evidence of pulmonary embolus. ACT 112: Negative or not required by law. Electronically signed by: Triston Riley M.D. 05/19/2023 1:51 PM
--- NOTE | 2023-05-19 14:07 | CT Scan Report ---
CT angio abdomen pelvis w con CLINICAL HISTORY: dissection TECHNIQUE: Multidetector row helical CT of the abdomen and pelvis was performed, following intravenou s administration of iodinated contrast. No oral contrast was administered. Automated dose lowering te chniques and/or adjustment according to patient size were utilized for this exam. Coronal and sagitta l reformations were obtained. MIP and 3D volume rendered reconstructions were obtained. Comparison: None available at the time of this dictation. FINDINGS: Lower chest: For findings above the diaphragm, please see CT chest performed same day. Liver: Unremarkable. No focal lesions are seen. Gallbladder and biliary tree: Cholelithiasis is seen without evidence of cholecystitis. No intra- or extrahepatic biliary ductal dilation. Pancreas: Unremarkable, no focal lesions. Spleen: Unremarkable. Adrenals: Unremarkable. Kidneys and ureters: Renal cysts are seen. Bladder: Diffuse homogeneous wall thickening is seen. Reproductive organs: Prostatomegaly is seen. Bowel: The appendix is normal. Lymph nodes Retroperitoneal: Retroperitoneal lymph nodes measure up to 13 mm in short axis. Prominent brayan hepat is nodes are also seen. Pelvic: Unremarkable. Mesenteric: Subcentimeter lymph nodes are noted. Peritoneum: Mild ascites is seen. Abdominal wall: Unremarkable. Bones: Degenerative changes in the visualized spine. CT angiogram: The abdominal aortic contours appear intact without evidence of aneurysmal dilatation a nd/or dissection. There is evidence of scattered atherosclerotic calcifications of the abdominal aor ta and its major branches. The origins of the celiac axis, superior mesenteric, inferior mesenteric and bilateral renal arteries are patent. IMPRESSION: 1. No acute abnormalities in particular no evidence of aortic dissection. 2. Retroperitoneal lymphadenopathy may be infectious/inflammatory. Clinical correlation is recommend ed. Prominence of the bladder wall may be due to underdistention or chronic outlet obstruction, corre lation with urinalysis is recommended to exclude UTI. ACT 112: Negative or not required by law. Electronically signed by: Triston Riley M.D. 05/19/2023 2:05 PM
[2023-05-19] MEDS ORDERED: Heparin IV Adult Wt-Based Standard w/ INITIAL Bolus Protocol IV STA (14:19)
[2023-05-19] MEDS ORDERED: HEPARIN SOD (PORCINE) 1000 UNIT/ML IV ONE ×2 (14:34)
[2023-05-19 14:39] LABS: Troponin I High Sensitivity 4714.5 pg/ml (0-20)
[2023-05-19] MEDS: HEPARIN SODIUM/DEXTROSE 25,000 UNITS/500 ML BAG IV SCH (14:41)
[2023-05-19 14:44] LABS: Partial Thromboplastin Ratio 0.9; Partial Thromboplastin Time 26 Seconds (21-31)
[2023-05-19 14:52] LABS: Appearance Urine Clear (Clear); Bilirubin Urine Negative (Negative); Blood Urine Negative (Negative); Color Urine Yellow; Glucose Urine UA Negative (Negative); Ketones Urine Negative (Negative); Leukocyte Esterase Urine Negative (Negative); Nitrite Urine Negative (Negative); Protein Urine Negative (Negative); Specific Gravity Urine > 1.045 (1.000-1.030); Urobilinogen Urine Negative (Negative)
--- NOTE | 2023-05-19 15:10 | History & Physical Report ---
Date of Service May 19, 2023 Assessment & Plan (1) Back pain: Plan: Acute onset of upper back pain and SOB at rest while lying in bed on 05/18 at 2300; episode lasted 15-20 min Symptoms had fully resolved by the time patient arrived in the ED Elevated troponin x2 Elevated D-dimer at 2320 BNP elevated at 611 UA negative BioFire negative CXR revealed left lower lung airspace opacity which could represent atelectasis or superimposed PNA Abdomen/pelvis CTA revealed NAF, no evidence of aortic dissection Chest CTA revealed NAF, no evidence of PE EKG on arrival showed NSR at 90 bpm; QTc 467; no prior EKGs for comparison Repeat a.m. EKG to monitor for changes Echocardiogram ordered, pending A.m. CBC, BMP, troponin, fasting lipid panel (2) Elevated troponin: Plan: Troponin 3421.8 --> 4714.5 Trend troponin q6h Clinically, patient denies chest pain No prior hx of MIs Started on heparin w/ bolus in the ED Continuous telemetry monitoring (3) Hypertension: Plan: Continue metoprolol, losartan (4) Alzheimer disease: Plan: Per family, no acute change in cognitive baseline Continue Aricept (5) Leukemia: Plan: Dx 2 weeks ago Leukocytosis at 24.98 with a lymphocytic predominance [facility] Daughter reports he has a follow-up appointment in 3 months Plan Disposition: Admit to PCU telemetry DNR/DNI AHA diet VTE PPx: Start on heparin w/ bolus in the ED History of Present Illness Chief Complaint: SOB/dyspnea/back pain Primary Care Provider: Susan Lugo PA-C Shin is a pleasant 87-year-old male with PMH of HTN, Alzheimer's disease, and recent leukemia diagnosis 2 weeks ago. Patient developed back pain and SOB at rest while lying in bed with around 2300 on 05/18. He reports that the back pain lasted 15 to 20 minutes. No radiation. He describes it as dull, achy. Worse when lying supine. He did not take any medications at this time. No prior experiences like this. He denies prior history of MIs or DVT/PEs. He denies ever having chest pain. Patient with a history of Alzheimer's, however his daughter (Mireya) is at the bedside and reports no acute change in cognitive baseline. She also reports a recent diagnosis of chronic [facility] Patient reports he does not think he took his morning medications today; helps to manage medications. Elevated blood pressure at 153/101 at time of admission; vitals otherwise stable. ED course: Heparin w/ bolus IVF ROS: Patient endorses upper back pain (resolved) and SOB at rest (resolved). Patient denies fever, chills, sweating, GAYLE, dizziness, lightheadedness, rashes, tick bites, chest pain, chest palpitations, abdominal pain, N/V/D, or numbness and tingling in the arms or legs bilaterally. Patient denies PMHx of NM, DVT/PE, CVA, cancer, and diabetes Allergies Allergy/AdvReac Type Severity Reaction Status Date / Time No Known Allergies Allergy Unverified 12/10/17 20:13 Home Medications Medication Instructions Recorded Confirmed Type aspirin 81 mg capsule 81 mg PO DAILY 05/19/23 05/19/23 History donepezil 5 mg tablet (Aricept) 5 mg PO HS 05/19/23 05/19/23 History hydrochlorothiazide 12.5 mg tablet 12.5 mg 05/19/23 History losartan 100 mg tablet 100 mg PO DAILY 05/19/23 05/19/23 History metoprolol succinate 50 mg 50 mg PO DAILY 05/19/23 05/19/23 History tablet,extended release 24 hr Past Med/Surg History Medical History (Updated 05/19/23 @ 15:57 by Saad Polk PA-C) Leukemia Alzheimer disease Hypertension Social History Smoking Status: Former smoker Feels Safe at Home: Yes Review of Systems Review of Systems: See HPI above Physical Exam Physical Exam: General: no acute distress; pleasant affect; non-toxic appearing; well- nourished; cooperative HEENT: normocephalic, atraumatic; no scleral icterus; PERRLA w/ EOMs intact; moist mucus membrane; vision and hearing intact Neck: supple; no JVD; no lymphadenopathy; trachea midline Skin: warm, dry without signs of tenting; no cyanosis; no rashes, bruising, lesions, or erythema noted CV: chest wall NTP; RRR; S1/S2 normal; 3/6 systolic ejection murmur auscultated at the second ICS MCL; pulses intact and symmetric at radial, DP, and PT Lungs: no acute respiratory distress; symmetrical chest wall expansion; clear breath sounds across all lung boggs w/o adventitious sounds; no wheezing ABD: Soft, NTP; BS present; no rebound/guarding; no ascites; no distention; negative CVA tenderness Back: Spine is NTP; pain is not reproducible on palpation of the upper back bilaterally; no rashes or bruising appreciated MSK: no tics or fasciculations; +1 pitting edema in the ankles B/L; patient demonstrates ability to wiggle toes Neuro: A&Ox3; normal mood and affect; fluent speech; no focal deficits; sensation grossly intact in the LEs B/L Results & Data Results & Data Vital Signs (Past 12 Hours) Vital Signs Temp Pulse Pulse Resp BP BP Pulse Ox 05/19/23 14:34 84 16 129/95 93 05/19/23 12:51 88 19 142/87 H 94 05/19/23 12:19 94 05/19/23 12:08 93 H 05/19/23 12:06 92 H 94 05/19/23 12:06 88 16 142/87 H 94 05/19/23 11:44 36.6 C 94 H 19 150/93 H 94 O2 Del Method 05/19/23 14:34 Room Air 05/19/23 12:51 Room Air 05/19/23 12:19 Room Air 05/19/23 12:08 05/19/23 12:06 Room Air 05/19/23 12:06 Room Air 05/19/23 11:44 Room Air Laboratory Results Abnormal lab results 05/19/23 05/19/23 05/19/23 Range/Units 12:10 13:09 14:05 WBC 24.98 H (4.8-10.8) K/ul RBC 4.01 L (4.70-6.10) M/uL Hgb 12.9 L (14.0-18.0) g/dl Hct 40.5 L (42.0-52.0) % MCV 101.0 H (80.0-100.0) fL MCHC 31.9 L (32.0-36.0) g/dL RDW Std Deviation 50.5 H (36.4-46.3) fL MPV 8.6 L (9.4-12.4) fL Lymph # (Auto) 16.56 H (1.20-3.40) K/uL [place] # (Auto) 1.70 H (0.11-0.59) K/uL D-Dimer 2320 H* (0-500) ug/L FEU Calcium 8.5 L (8.6-10.3) mg/dl AST 50 H (13-39) U/L Alkaline Phosphatase 106 H (34-104) U/L Troponin I High Sens 3421.8 H* 4714.5 H* D (0-20) pg/ml B-Natriuretic Peptide 611 H (0-100) pg/ml Ur Specific [place] (1.000-1.030) 05/19/23 Range/Units 14:32 WBC (4.8-10.8) K/ul RBC (4.70-6.10) M/uL Hgb (14.0-18.0) g/dl Hct (42.0-52.0) % MCV (80.0-100.0) fL MCHC (32.0-36.0) g/dL RDW Std Deviation (36.4-46.3) fL MPV (9.4-12.4) fL Lymph # (Auto) (1.20-3.40) K/uL [place] # (Auto) (0.11-0.59) K/uL D-Dimer (0-500) ug/L FEU Calcium (8.6-10.3) mg/dl AST (13-39) U/L Alkaline Phosphatase (34-104) U/L Troponin I High Sens (0-20) pg/ml B-Natriuretic Peptide (0-100) pg/ml Ur Specific [place] > 1.045 H (1.000-1.030) Diagnostic Findings Chest X-Ray 05/19/23 12:03 XR chest 1V portable CLINICAL HISTORY: Dyspnea TECHNIQUE: Single frontal radiograph of the chest was obtained. Comparison: None available at the time of this dictation. FINDINGS: No lines and tubes are seen. The cardiomediastinal silhouette is normal. Prominence and cephalization of the vasculature is seen. Airspace opacities in the left lower lung. Trace left pleural effusion. IMPRESSION: 1. Cardiomegaly and mild pulmonary edema. 2. Left lower lung airspace opacity likely represent atelectasis with or without superimposed pneumonia and/or aspiration. ACT 112: Negative or not required by law. Electronically signed by: Triston Riley M.D. 05/19/2023 12:41 PM Abdomen/Pelvis CTA 05/19/23 13:04 CT angio abdomen pelvis w con CLINICAL HISTORY: dissection TECHNIQUE: Multidetector row helical CT of the abdomen and pelvis was performed, following intravenous administration of iodinated contrast. No oral contrast was administered. Automated dose lowering techniques and/or adjustment according to patient size were utilized for this exam. Coronal and sagittal reformations were obtained. MIP and 3D volume rendered reconstructions were obtained. Comparison: None available at the time of this dictation. FINDINGS: Lower chest: For findings above the diaphragm, please see CT chest performed same day. Liver: Unremarkable. No focal lesions are seen. Gallbladder and biliary tree: Cholelithiasis is seen without evidence of cholecystitis. No intra- or extrahepatic biliary ductal dilation. Pancreas: Unremarkable, no focal lesions. Spleen: Unremarkable. Adrenals: Unremarkable. Kidneys and ureters: Renal cysts are seen. Bladder: Diffuse homogeneous wall thickening is seen. Reproductive organs: Prostatomegaly is seen. Bowel: The appendix is normal. Lymph nodes Retroperitoneal: Retroperitoneal lymph nodes measure up to 13 mm in short axis. Prominent brayan hepatis nodes are also seen. Pelvic: Unremarkable. Mesenteric: Subcentimeter lymph nodes are noted. Peritoneum: Mild ascites is seen. Abdominal wall: Unremarkable. Bones: Degenerative changes in the visualized spine. CT angiogram: The abdominal aortic contours appear intact without evidence of aneurysmal dilatation and/or dissection. There is evidence of scattered atherosclerotic calcifications of the abdominal aorta and its major branches. The origins of the celiac axis, superior mesenteric, inferior mesenteric and bilateral renal arteries are patent. IMPRESSION: 1. No acute abnormalities in particular no evidence of aortic dissection. 2. Retroperitoneal lymphadenopathy may be infectious/inflammatory. Clinical correlation is recommended. Prominence of the bladder wall may be due to underdistention or chronic outlet obstruction, correlation with urinalysis is recommended to exclude UTI. ACT 112: Negative or not required by law. Electronically signed by: Triston Riley M.D. 05/19/2023 2:05 PM Chest CTA 05/19/23 13:04 CT angio chest wo/w con CLINICAL HISTORY: PE TECHNIQUE: Multidetector row helical CT of the chest was performed with angiographic protocol. Coronal and sagittal reformations were obtained. Coronal and sagittal MIPS were obtained from the axial data set and were submitted for review. Automated dose lowering techniques and/or adjustment according to patient size were utilized for this exam. CT DOSE: 2692.7 mGy.cm Comparison: None available at the time of this dictation. FINDINGS: Lungs and pleura: Left lung atelectasis is seen. No suspicious pulmonary nodules. Heart and pericardium: Heart size is normal. No pericardial effusion. Vessels: No evidence of pulmonary embolism. Mediastinum and chioma: Unremarkable. Chest wall and lower neck: Subcentimeter axillary lymph nodes noted. Abdomen: For findings below the diaphragm, please refer to CT of the abdomen dated the same. Bones: Degenerative changes in the thoracic spine. IMPRESSION: No acute abnormality and in particular no evidence of pulmonary embolus. ACT 112: Negative or not required by law. Electronically signed by: Triston Riley M.D. 05/19/2023 1:51 PM Code Status & VTE Plan Code Status DNR/DNI VTE Prophylaxis Plan VTE Prophylaxis will be ordered: Yes Supervising Physician Co-Signing Physician Notes Mr. Shin Rogers 87-year-old who states he came into the ED because his made him. He does acknowledge having shortness of breath overnight for a few hours. His family reported mid back pain at that time. He is a vague historian he is comfortable when I met him and has no complaints specifically no shortness of breath chest or abdominal pain. On physical exam he is alert oriented to the hospital and the basics of the situation but provides vague responses to details and seems forgetful. Neurological exam is nonfocal. Cardiac exam notable for mild elevation of JVP in the 810 range prominent systolic murmur loudest at right upper sternal border left lower sternal border audible at the apex and less so left upper chest. No carotid bruits. Lung exam notable for nonlabored respirations clear to auscultation except for crackles in right base greater than left base no wheezing. Abdomen soft nontender nondistended. Lower extremities are warm and well-perfused with no edema. Assessment: 87-year-old gentleman without cardiac history presents with NSTEMI, possibly type I although consider type II related to underlying undiagnosed valvular heart disease and possibly some mild volume overload. 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 We will check a procalcitonin but defer antibiotics if procalcitonin remain negative. Ddimer is elevated but he has no PE on CTA and no signs/sx of VTE. Regarding NSTEMI will admit to telemetry, serial troponin checks and EKG checks. Continue heparin drip, continue his metoprolol and ARB, daily aspirin, add high intensity statin with 40 mg atorvastatin, lipid panel in a.m., TTE, cardiology consultation tomorrow. He is currently pain-free and appears stable. I personally reviewed his chart including vital signs, labs, studies, EKG tracing which is remarkable for borderline for interventricular conduction delay LVH pattern no acute ST elevations. Chest x-ray and chest CT images and report. Past medical history, surgical history, family history. I have reviewed and agree with documentation by STEFANIE Polk noted above. PG Care Time/CCT Total # of Minutes Spent Total Time Spent with Patient: Total time spent is greater than 50% in coordination of care (as documented) at patient's floor/unit and/or counseling patient: [place] [address] INT INP/OBS CARE 3/75MIN Patient Type New Medical Decision Making High Complexity Diagnoses Back pain M54.9 Elevated troponin R79.89 Hypertension I10 Alzheimer disease G30.9; F02.80 Leukemia C95.90
[2023-05-19] MEDS ORDERED: NITROGLYCERIN SL 0.4 MG/TAB TAB SL PRN (16:43)
[2023-05-19] MEDS ORDERED: ACETAMINOPHEN 325 MG TAB PO PRN (16:43)
[2023-05-19] MEDS: METOPROLOL SUCC 50MG EXT REL TAB PO SCH (17:54)
[2023-05-19] MEDS: ATORVASTATIN 40 MG TAB PO SCH (17:54)
[2023-05-19] MEDS ORDERED: MELATONIN 3 MG TAB PO PRN (19:55)
[2023-05-19] MEDS ORDERED: DONEPEZIL HCL 5 MG TAB PO SCH (21:00)
[2023-05-19 21:43] LABS: ANTI-Xa, UFH(UnfractionatedHep 0.87 IU/ml (0.3-0.7)
[2023-05-19] MEDS ORDERED: LOSARTAN POTASSIUM 50 MG TAB PO ONE (22:10)
[2023-05-20 05:57] LABS: Hematocrit (blood only) 38.3 % (42.0-52.0); Hemoglobin 12.5 g/dl (14.0-18.0); Mean Corpuscular Hemoglobin 32.3 pg (25.0-34.0); Mean Corpuscular Hgb Conc 32.6 g/dL (32.0-36.0); Mean Platelet Volume 8.5 fL (9.4-12.4); Platelet Count 196 K/uL (130-400); RDW Coefficient of Variation 13.4 % (11.5-14.5); RDW Standard Deviation 48.5 fL (36.4-46.3); Red Blood Count 3.87 M/uL (4.70-6.10); White Blood Count 30.83 K/ul (4.8-10.8)
[2023-05-20 06:06] LABS: BUN Creatinine Ratio 17.3 (10-20); Calcium 8.4 mg/dl (8.6-10.3); Chol HDL Ratio 2.9 (0-5); Creatinine Clr Calc Pharmacy 57.6 ml/min; Est GFR (African American) 78.9 ml/min; Est GFR (Non-African American) 68.1 ml/min; Potassium 4.1 mmol/L (3.5-5.1)
[2023-05-20 06:26] LABS: Basophils # (auto) 0.17 K/uL (0.00-0.20); Basophils % (auto) 0.6 %; Eosinophils # (auto) 0.17 K/uL (0.00-0.50); Eosinophils % (auto) 0.6 %; Immature Granulocytes # (auto) 0.17 K/uL (0.01-0.20); Immature Granulocytes % (auto) 0.6 %; Lymphocytes % (auto) 72.3 %; Monocytes # (auto) 2.17 K/uL (0.11-0.59); Neutrophils # (auto) 5.85 K/uL (1.40-6.50); Neutrophils % (auto) 18.9 %; Polychromasia 1+
[2023-05-20 06:38] LABS: ANTI-Xa, UFH(UnfractionatedHep 0.66 IU/ml (0.3-0.7)
[2023-05-20] MEDS: ATORVASTATIN 40 MG TAB PO SCH (08:30)
[2023-05-20] MEDS: METOPROLOL SUCC 50MG EXT REL TAB PO SCH (08:30)
[2023-05-20] MEDS: ASPIRIN 81 MG ECTAB PO SCH (08:30)
[2023-05-20] MEDS: LOSARTAN POTASSIUM 50 MG TAB PO SCH (08:30)
[2023-05-20] MEDS ORDERED: FUROSEMIDE 40 MG/4 ML VIAL IV SCH (09:00)
--- NOTE | 2023-05-20 09:14 | XCELERA ---
[id number]___[id number]
[2023-05-20] MEDS: HEPARIN SODIUM/DEXTROSE 25,000 UNITS/500 ML BAG IV SCH (10:05)
--- NOTE | 2023-05-20 10:25 | Electrocardiogram Report ---
Test Reason : Blood Pressure : / mmHG Vent. Rate : 090 BPM Atrial Rate : 090 BPM P-R Int : 158 ms QRS Dur : 116 ms QT Int : 382 ms P-R-T Axes : 016 -44 046 degrees QTc Int : 467 ms Normal sinus rhythm Left axis deviation Minimal voltage criteria for LVH, may be normal variant Abnormal ECG No previous ECGs available Confirmed by Kieran Irizarry ([id number]) on 05/20/2023 10:25:21 AM Referred By: REFERRED SELF Confirmed By:Mahesh Irizarry
[2023-05-20] MEDS: QUEtiapine FUMARATE 25 MG TABLET PO SCH ×2 (10:45→21:20)
--- NOTE | 2023-05-20 12:34 | Hospitalist Progress Note ---
Date of Service May 20, 2023 Assessment & Plan (1) Back pain: Plan: Now resolved. This may have been his angina equivalent. (2) Elevated troponin: Plan: Significant troponin elevation. Cardiac echo reveals anterior septal regional wall motion abnormalities with mildly depressed ejection fraction. He may have suffered an IN. Telemetry. Cardiology consultation is pending. Continue heparin infusion for now. 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 Monitor intake and output. Serial chest x-ray. Continue ARB and metoprolol therapy. Await cardiology consultation. (4) Hypertension: Plan: Stable. Continue metoprolol, losartan (5) Alzheimer disease: Plan: Aricept has been of little value here. This has been discontinued. Seroquel 25 mg twice daily has been started. Supportive care. One-on-one observation order (6) Leukemia: Plan: Recent diagnosis. White blood cell count is elevated which is chronic. He will continue to follow-up with hematology as an outpatient Plan To be determined. Admission and Anticipated Discharge Date Admission Date: May 19, 2023 Subjective He appears to be alert and oriented without complaint at the time of my examination. Earlier he was confused and pulled out his IV which discontinued the heparin drip. Chest x-ray appears to be consistent with CHF. Cardiac echo reveals ejection fraction of 45% with anterior septal hypokinesis. Troponin is significantly elevated and he may have suffered an IN this admission. He is now on intravenous Lasix. One-on-one supervision has been ordered. Aricept has been discontinued and Seroquel 25 mg twice daily started. Cardiology consultation is pending. White blood cell count is elevated and chronic due to CLL.. BNP is elevated at 611 Review of Systems 2 Review of Systems: Constitutional-no fever or chills ENT-no blurred vision, no double vision, no epistaxis, no sore throat Respiratory-no cough, no wheezing, no shortness of breath Cardiac-no palpitations, no chest pain, no syncope GI-no nausea, vomiting, diarrhea, melena, hematochezia -no urinary retention, no urinary incontinence, no dysuria, no hematuria Musculoskeletal-upper back discomfort has resolved Skin-no bruising, no rashes, no pruritus Neuro-no isolated weakness, no paresthesia Psych-baseline Alzheimer's type dementia with intermittent confusion Physical Exam 2 Physical Exam: General-alert and oriented x3, no fever, no chills HEENT-head atraumatic and normocephalic, pupils equal and reactive to light, extraocular muscles intact Neck-no lymphadenopathy or thyromegaly, trachea midline Chest-faint bibasilar inspiratory rales. No wheezing. No rhonchi Cardiac-regular rate and rhythm, normal S1 and S2 Abdomen-normal bowel sounds, nontender, no hepatosplenomegaly Extremities-no cyanosis, clubbing, or edema Neuro-cranial nerves II through XII intact, motor and sensory function within normal limits, strength symmetrical, no focal deficits Psych-normal affect, normal mood Results & Data Results & Data Vital Signs (Past 12 Hours) Vital Signs Temp Pulse Pulse Resp BP Pulse Ox O2 Del Method 05/20/23 10:37 36.6 C 83 17 147/82 H 93 Room Air 05/20/23 07:42 36.9 C 84 19 159/91 H 92 Room Air 05/20/23 05:59 82 05/20/23 03:10 36.6 C 79 18 131/73 94 Room Air Laboratory Results 05/20/23 05:36 05/20/23 05:36 PG Care Time/CCT Total # of Minutes Spent Total Time Spent with Patient: Total time spent is greater than 50% in coordination of care (as documented) at patient's floor/unit and/or counseling patient: Coding Level of Care Code 46195 SUB INP/OBS CARE 3/50MIN Diagnoses Back pain M54.9 Elevated troponin R79.89 Combined systolic and diastolic congestive heart failure I50.40 Hypertension I10 Alzheimer disease G30.9; F02.80 Leukemia C95.90
[2023-05-20] MEDS ORDERED: ISOSORBIDE MONO EXTENDED REL 30 MG TABCR PO ONE (14:08)
--- NOTE | 2023-05-20 14:16 | Cardiology Consultation ---
Date of Consultation May 20, 2023 Assessment & Plan (1) Acute non-ST elevation myocardial infarction (NSTEMI): Unclear etiology. Presumed coronary artery disease. At this point, medical management is preferred and is reasonable. He will remain on heparin drip to complete 48 hours of therapy. He will also remain on aspirin 81 mg daily and we should consider the addition of Plavix 75 mg daily. His platelet count is good. His blood pressure has been above target and his heart rate is also slightly above target. Continue with losartan 100 mg daily, adding isosorbide mononitrate 30 mg p.o. daily to see if this helps with his anginal symptoms, and if his blood pressure will tolerate will increase his metoprolol succinate ER 50 mg daily up to 75 mg daily. (2) Combined systolic and diastolic congestive heart failure: Today he has no evidence of volume overload. We could reduce his Lasix to 40 mg p.o. daily. Continue losartan and metoprolol succinate. Monitor renal function. Replace potassium as necessary. (3) Hypertension: Blood pressure is above target. He will be on losartan 100 mg daily, Imdur 30 mg daily, metoprolol succinate ER at least 50 mg daily but may increase to 75 mg daily if heart rate and blood pressure allow. (4) Atherogenic dyslipidemia: Patient's LDL and HDL are at target. Continue atorvastatin 40 mg daily. Plan We will see how the patient tolerates changes in his medications. Will also see if he has any recurrence of his symptoms despite medical management. If he tolerates and has no symptoms then it is reasonable for him to be discharged tomorrow. However, it is agreed by myself and his family that should he have recurrence of symptoms despite medical management then cardiac catheterization should be undertaken to define his anatomy and treat as indicated by findings. NOTE: I have spent 75 minutes in the initial review of the records, discussion and examination of the patient, discussion with nursing, discussion with the patient's family, formulation and implementation of a plan of care, and all associated documentation. History of Present Illness Reason for Consultation: Elevated troponin Attending Physician: Gamal Deal MD History of Present Illness 87-year-old male without cardiac history presented after developing onset of significant back discomfort and dyspnea. Patient has Alzheimer's dementia and cannot recall very well to circumstances surrounding his admission. He does recall that he had some discomfort in his back without radiation to the chest or elsewhere. He was fairly short of breath. His (who is his medical decision-maker) states that he had been having onset of back discomfort for the past few weeks. Symptoms were intermittent and often accompanied by shortness of breath. She denies that he ever had these particular issues in the past. Both his and his daughter are present and state that he has been very healthy his whole life. Patient seemed surprised when I asked him about his leukemia. 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 He is still undergoing initial evaluation and his states that decision regarding need for chemotherapy has not been definitively made but that the cancer doctor was thinking he likely would not need any chemotherapy. Patient recalled his prior primary care provider (Dr. Christianson) but could not recall his current primary care provider. His tells me they do see a [facility] primary care provider. She also follows with Dr. Reece Garcia for her own cardiovascular care. Patient tells me he has had no further back pain since arrival to the emergency department. He denies any chest pain now or at any time. He denies any further shortness of breath, recent syncope, near syncope, orthopnea, PND, racing heartbeat, palpitations, or edema. His confirms that he has been feeling pretty well. I discussed the findings on echocardiogram including regional wall motion abnormalities, mildly reduced EF, valvular heart disease, and the appearance of some of the segments suggestive of prior myocardial infarction. She states to their knowledge he never had prior heart attack but did have episodes of shortness of breath. With his recent episode, she states he appeared to be fairly uncomfortable although he denied any significant symptoms. Sounds like the symptoms lasted for most of the night before they finally decided to seek medical attention. We also discussed his CLL and dementia which both seem to be relatively stable and gradually progressing. She states that he always said he did not want any chemotherapy or surgery. He has "bad knees" and did not want to undergo surgery for those. According to her, he has stated that "I am getting older and my parts are wearing out". He has "not wanted anything done". We then discussed potential cardiac catheterization plus or minus PCI. They understand that he would certainly not be a candidate for open heart surgery. We discussed the benefit of PCI in the setting of acute MT and for symptom relief in patients suffering from angina refractory to medications. I offered catheterization versus medical management. At this time, the patient's and his daughter both agree that he would likely prefer medical management reserving catheterization for refractory symptoms or acute ST elevation MT, ventricular tachycardia/ventricular fibrillation. We also discussed the patient's home living situation. They live in a split-level also needs to climb stairs to go up to the living area or down to the lower area. The rare entrances on the lower area only while the front entrance is between the 2 levels. He has done fairly well with this up to this point. No falls despite the bad knees. Allergies Allergy/AdvReac Type Severity Reaction Status Date / Time No Known Allergies Allergy Unverified 12/10/17 20:13 Home Medications Medication Instructions Recorded Confirmed Type aspirin 81 mg capsule 81 mg PO DAILY 05/19/23 05/19/23 History donepezil 5 mg tablet (Aricept) 5 mg PO HS 05/19/23 05/19/23 History hydrochlorothiazide 12.5 mg tablet 12.5 mg 05/19/23 History losartan 100 mg tablet 100 mg PO DAILY 05/19/23 05/19/23 History metoprolol succinate 50 mg 50 mg PO DAILY 05/19/23 05/19/23 History tablet,extended release 24 hr Patient History Medical History Leukemia Alzheimer disease Hypertension Social History Smoking Status: Former smoker Hx Alcohol Use: No Hx Substance Use: No Preferred Language: Maori Communication Ability: Effective Manager Image Required: No Beliefs That Will Affect Care: None Current Living Situation: Spouse Current Living Situation Comment: at home with Feels Safe at Home: Yes Safety Concerns: Feels Safe At This Time Assistive Devices: None Review of Systems Review of Systems: Negative except as per HPI Physical Exam Constitutional: WD/WN, vitals as above (Elderly, obese, no acute distress.) Eyes: Extraocular muscles intact. Sclera are anicteric. ENMT: Oral mucosa is pink moist and intact Neck: No JVD or bruits Respiratory: Clear to auscultation bilaterally. No wheezing, rhonchi, or rales. Cardiovascular: Regular rate and rhythm. Grade 2 out of 6 to 3 out of 6 systolic murmur heard best at the right upper sternal border. Also grade 2/6 systolic murmur heard near the apex. 1+ pulses. No edema. Musculoskeletal: no cyanosis or clubbing, extremities motor strength 5/5 Neurologic: Cognition is intact but he has a poor memory. Answers appropriately when queried but if he cannot recall the information he answers by deferring to his or daughter. No motor deficits. No tremor. Psychiatric: A+Ox3, euthymic affect Results & Data Vital Signs (Past 12 Hours) Vital Signs Temp Pulse Pulse Resp BP Pulse Ox O2 Del Method 05/20/23 10:37 36.6 C 83 17 147/82 H 93 Room Air 05/20/23 07:42 36.9 C 84 19 159/91 H 92 Room Air 05/20/23 05:59 82 05/20/23 03:10 36.6 C 79 18 131/73 94 Room Air PG Care Time/CCT Total # of Minutes Spent Total Time Spent with Patient: Total time spent is greater than 50% in coordination of care (as documented) at patient's floor/unit and/or counseling patient: Coding Level of Care Code 67594 INT INP/OBS CARE 3/75MIN Diagnoses Acute non-ST elevation myocardial infarction (NSTEMI) I21.4 Combined systolic and diastolic congestive heart failure I50.40 Hypertension I10 Atherogenic dyslipidemia E78.5
[2023-05-20] MEDS: FUROSEMIDE 40 MG/4 ML VIAL IV SCH (16:29)
[2023-05-21 07:15] LABS: BUN Creatinine Ratio 15.4 (10-20); Calcium 8.4 mg/dl (8.6-10.3); Creatinine Clr Calc Pharmacy 43.3 ml/min; Est GFR (African American) 56.1 ml/min; Est GFR (Non-African American) 48.4 ml/min; Potassium 3.8 mmol/L (3.5-5.1)
[2023-05-21 07:21] LABS: ANTI-Xa, UFH(UnfractionatedHep 0.65 IU/ml (0.3-0.7)
[2023-05-21] MEDS: HEPARIN SODIUM/DEXTROSE 25,000 UNITS/500 ML BAG IV SCH (07:41)
[2023-05-21 07:47] LABS: Basophils # (auto) 0.13 K/uL (0.00-0.20); Basophils % (auto) 0.4 %; Eosinophils # (auto) 0.24 K/uL (0.00-0.50); Eosinophils % (auto) 0.7 %; Hematocrit (blood only) 34.7 % (42.0-52.0); Hemoglobin 11.6 g/dl (14.0-18.0); Immature Granulocytes # (auto) 0.11 K/uL (0.01-0.20); Immature Granulocytes % (auto) 0.3 %; Lymphocytes # (auto) 23.44 K/uL (1.20-3.40); Lymphocytes % (auto) 69.7 %; Mean Corpuscular Hemoglobin 32.3 pg (25.0-34.0); Mean Corpuscular Hgb Conc 33.4 g/dL (32.0-36.0); Mean Corpuscular Volume 96.7 fL (80.0-100.0); Mean Platelet Volume 8.8 fL (9.4-12.4); Monocytes # (auto) 3.33 K/uL (0.11-0.59); Monocytes % (auto) 9.9 %; Neutrophils # (auto) 6.36 K/uL (1.40-6.50); Platelet Count 196 K/uL (130-400); RDW Coefficient of Variation 13.3 % (11.5-14.5); RDW Standard Deviation 47.8 fL (36.4-46.3); Red Blood Count 3.59 M/uL (4.70-6.10)
[2023-05-21 07:49] LABS: White Blood Count 33.61 K/ul (4.8-10.8)
[2023-05-21] MEDS: METOPROLOL SUCC 25MG EXT REL TAB PO SCH (08:29)
[2023-05-21] MEDS: FUROSEMIDE 40 MG/4 ML VIAL IV SCH (08:29)
[2023-05-21] MEDS: ATORVASTATIN 40 MG TAB PO SCH (08:29)
[2023-05-21] MEDS: ISOSORBIDE MONO EXTENDED REL 30 MG TABCR PO SCH (08:30)
[2023-05-21] MEDS: METOPROLOL SUCC 50MG EXT REL TAB PO SCH (08:30)
[2023-05-21] MEDS: ASPIRIN 81 MG ECTAB PO SCH (08:30)
[2023-05-21] MEDS: LOSARTAN POTASSIUM 50 MG TAB PO SCH (08:30)
[2023-05-21] MEDS: QUEtiapine FUMARATE 25 MG TABLET PO SCH ×2 (08:31→21:25)
[2023-05-21] MEDS ORDERED: FUROSEMIDE 40 MG TAB PO SCH (09:00)
--- NOTE | 2023-05-21 10:48 | XRay Report ---
XR chest 1V portable CLINICAL HISTORY: Congestive heart failure. COMPARISON STUDY: Chest radiograph and chest CT May 19, 2023. FINDINGS: Low lung volumes with elevation of the left hemidiaphragm is unchanged. There is no pneumot horax. Small left pleural effusion is unchanged. Left basilar opacity favors atelectasis. Pulmonary e chapis has improved. Cardiomediastinal silhouette is stable. There is no consolidation to suggest pneum onia. IMPRESSION: 1. Mild improvement in pulmonary edema. 2. No change in a small left pleural effusion with left basilar opacity suggestive of atelectasis. ACT 112: Negative or not required by law. Electronically signed by: Gamaliel Leigh M.D. 05/21/2023 10:46 AM
--- NOTE | 2023-05-21 12:57 | Discharge Summary ---
Date of Service May 21, 2023 Admission HPI Per Admitting Provider Shin is a pleasant 87-year-old male with PMH of HTN, Alzheimer's disease, and recent leukemia diagnosis 2 weeks ago. Patient developed back pain and SOB at rest while lying in bed with around 2300 on 05/18. He reports that the back pain lasted 15 to 20 minutes. No radiation. He describes it as dull, achy. Worse when lying supine. He did not take any medications at this time. No prior experiences like this. He denies prior history of MIs or DVT/PEs. He denies ever having chest pain. Patient with a history of Alzheimer's, however his daughter (Mireya) is at the bedside and reports no acute change in cognitive baseline. She also reports a recent diagnosis of chronic [facility] Patient reports he does not think he took his morning medications today; helps to manage medications. Elevated blood pressure at 153/101 at time of admission; vitals otherwise stable. ED course: Heparin w/ bolus IVF ROS: Patient endorses upper back pain (resolved) and SOB at rest (resolved). Patient denies fever, chills, sweating, GAYLE, dizziness, lightheadedness, rashes, tick bites, chest pain, chest palpitations, abdominal pain, N/V/D, or numbness and tingling in the arms or legs bilaterally. Patient denies PMHx of TX, DVT/PE, CVA, cancer, and diabetes Principal Diagnosis Acute on chronic combined systolic/diastolic congestive heart failure, suspected acute anterior wall TX Discharge Exam General-alert and oriented x3, no fever, no chills HEENT-head atraumatic and normocephalic, pupils equal and reactive to light, extraocular muscles intact Neck-no lymphadenopathy or thyromegaly, trachea midline Chest-faint bibasilar inspiratory rales. No wheezing. No rhonchi Cardiac-regular rate and rhythm, normal S1 and S2 Abdomen-normal bowel sounds, nontender, no hepatosplenomegaly Extremities-no cyanosis, clubbing, or edema Neuro-cranial nerves II through XII intact, motor and sensory function within normal limits, strength symmetrical, no focal deficits Psych-normal affect, normal mood Discharge Data Allergies Allergy/AdvReac Type Severity Reaction Status Date / Time No Known Allergies Allergy Unverified 12/10/17 20:13 Consultations 05/19/23 15:16 ED Decision to Admit Stat 05/20/23 06:21 Consult Cardiology Routine 05/20/23 07:19 Consult Cardiology Routine Ordered Studies 05/19/23 13:04 CT angio chest wo/w con Stat CTA abdomen pelvis w con [CT angio abdomen pelvis w con] Stat Hospital Course (1) Back pain: Now resolved. This probably was his angina equivalent. (2) Elevated troponin: Significant troponin elevation. Cardiac echo reveals anterior septal regional wall motion abnormalities with mildly depressed ejection fraction. He appears to have suffered an anterior wall TX. Telemetry. Cardiology consultation and recommendations appreciated. Heparin infusion will be discontinued today, May 21. He is on ARB and metoprolol therapy. Isosorbide mononitrate was also started by cardiology. Parenteral Lasix has been switched to oral dosing (3) Combined systolic and diastolic congestive heart failure: Treated with parenteral Lasix diuresis. Switched to oral dosing today, May 21. Monitor intake and output. Chest x-ray done today, May 21, looks better. He is on room air. (4) Hypertension: Stable. Continue metoprolol, losartan, isosorbide (5) Alzheimer disease: Aricept has been of little value here. This has been discontinued. Seroquel 25 mg twice daily has been started. Supportive care. One-on-one observation (6) Leukemia: Recent diagnosis. White blood cell count is elevated which is chronic. He will continue to follow-up with hematology as an outpatient Plan Home today, May 21. He will follow-up with his PCP and cardiology as soon as possible Total Time Total Time Spent Total Time Spent (In Minutes): 45 minutes Discharge Plan Discharge Items Patient Disposition: Home - Self-Care Reason For Visit: BACK PAIN, SOB Discharge Diagnosis: Acute anterior wall TX, acute on chronic combined systolic and diastolic CHF Activity: Resume your previous activity Non-emergency contact: Primary Care Provider and Film Laboratory Technician Call non-emergency contact if: you have any medication questions and your symptoms worsen Follow-up/Referrals: Susan Lugo PA-C [Primary Care Provider] - Diet: Regular and Heart Healthy Addtl Attending Provider Instructions: New medication includes Lasix once daily, isosorbide mononitrate daily, and Seroquel 25 mg twice daily. Aricept has been discontinued. Metoprolol dosage has been increased Pending Studies at Discharge: No Stand-Alone Forms: [facility], Smoking Cessation Medications and DC Order Prescriptions: New metoprolol succinate 100 mg capsule,sprinkle,ER 24hr 100 mg PO DAILY Qty: 30 0RF quetiapine 25 mg Tablet 25 mg PO BID Qty: 60 0RF furosemide 40 mg Tablet 40 mg PO QAM Qty: 30 0RF atorvastatin 40 mg Tablet 40 mg PO QAM Qty: 30 0RF isosorbide mononitrate 30 mg Tablet Extended Release 24 Hr 30 mg PO QAM Qty: 30 0RF nitroglycerin [Nitrostat] 0.4 mg Tablet, Sublingual 0.4 mg sublingual Q5M PRN (Reason: chest pain) Qty: 25 0RF Continued losartan 100 mg tablet 100 mg PO DAILY aspirin 81 mg Capsule 81 mg PO DAILY Discontinued donepezil [Aricept] 5 mg tablet 5 mg PO HS metoprolol succinate 50 mg tablet extended release 24 hr 50 mg PO DAILY hydrochlorothiazide 12.5 mg tablet 12.5 mg Discharge Orders: Discharge Order- CHF (Routine); Ordered 05/21/23 Ordered By: Gamal Deal Admission Data Admit Date/Time: 05/19/23 15:47 Attending Provider: Gamal Deal Admit Provider: Jadyn Asher Primary Care Provider: Susan Lugo Other Providers: Philippe Haddad; Cristobal Hu; Damián Merlos; Garett Mackay; Eduardo Elliott; Abhilash Eric Jr; Reese Ahuja; Henrietta Perea; Elizabeth Sanchez; Kieran Harris; Kieran Irizarry; Gamal Varma; Matilda Chu; Bianca Kaufman; Agustín Gutierres; Eduardo Hudson; Mian Florentino Coding Level of Care Code 47481 INP/OBS DISCH >30 MIN Diagnoses Back pain M54.9 Elevated troponin R79.89 Combined systolic and diastolic congestive heart failure I50.40 Hypertension I10 Alzheimer disease G30.9; F02.80 Leukemia C95.90
[2023-05-21] MEDS ORDERED: SODIUM CHLORIDE 0.9% 250 ML IV ONE ×2 (13:54→13:58)
--- NOTE | 2023-05-21 15:17 | Electrocardiogram Report ---
Test Reason : Blood Pressure : / mmHG Vent. Rate : 090 BPM Atrial Rate : 090 BPM P-R Int : 160 ms QRS Dur : 124 ms QT Int : 416 ms P-R-T Axes : 023 -50 082 degrees QTc Int : 508 ms Normal sinus rhythm Left axis deviation Non-specific intra-ventricular conduction delay Abnormal ECG Confirmed by Kieran Irizarry ([id number]) on 05/21/2023 3:17:06 PM Referred By: REFERRED SELF Confirmed By:Mahesh Irizarry
--- NOTE | 2023-05-21 15:51 | Hospitalist Progress Note ---
Date of Service May 21, 2023 Assessment & Plan (1) Back pain: Plan: Now resolved. This probably was his angina equivalent. (2) Elevated troponin: Plan: Significant troponin elevation. Cardiac echo reveals anterior septal regional wall motion abnormalities with mildly depressed ejection fraction. He appears to have suffered an anterior wall WI. Telemetry. Cardiology consultation and recommendations appreciated. Heparin infusion was discontinued today, May 21. He is on ARB and metoprolol therapy. Isosorbide mononitrate was also started by cardiology. Parenteral Lasix has been switched to oral dosing (3) Combined systolic and diastolic congestive heart failure: Plan: Treated with parenteral Lasix diuresis. Switched to oral dosing today, May 21. Monitor intake and output. Chest x-ray done today, May 21, looks better. He is on room air. (4) Hypertension: Plan: Stable. Continue metoprolol, losartan, isosorbide (5) Alzheimer disease: Plan: Aricept has been of little value here. This has been discontinued. Seroquel 25 mg twice daily has been started. Supportive care. One-on-one observation (6) Leukemia: Plan: Recent diagnosis. White blood cell count is elevated which is chronic. He will continue to follow-up with hematology as an outpatient Plan Anticipated discharge to home was canceled due to a hypotensive episode. Family is now requesting rehab placement. OT and PT assessments have been requested Admission and Anticipated Discharge Date Admission Date: May 19, 2023 Subjective Alert and oriented. Lengthy discussion with family at the bedside. Anticipated discharge to home has been canceled because he had a hypotensive episode. The family is now requesting SNF or IPR placement. OT and PT evaluations have been requested. He is currently alert and stable. Low blood pressure earlier today responded to a small fluid bolus Review of Systems 2 Review of Systems: Constitutional-no fever or chills ENT-no blurred vision, no double vision, no epistaxis, no sore throat Respiratory-no cough, no wheezing, no shortness of breath Cardiac-no palpitations, no chest pain, no syncope GI-no nausea, vomiting, diarrhea, melena, hematochezia -no urinary retention, no urinary incontinence, no dysuria, no hematuria Musculoskeletal-upper back discomfort has resolved Skin-no bruising, no rashes, no pruritus Neuro-no isolated weakness, no paresthesia Psych-baseline Alzheimer's type dementia with intermittent confusion Physical Exam 2 Physical Exam: General-alert and oriented x3, no fever, no chills HEENT-head atraumatic and normocephalic, pupils equal and reactive to light, extraocular muscles intact Neck-no lymphadenopathy or thyromegaly, trachea midline Chest-faint bibasilar inspiratory rales. No wheezing. No rhonchi Cardiac-regular rate and rhythm, normal S1 and S2 Abdomen-normal bowel sounds, nontender, no hepatosplenomegaly Extremities-no cyanosis, clubbing, or edema Neuro-cranial nerves II through XII intact, motor and sensory function within normal limits, strength symmetrical, no focal deficits Psych-normal affect, normal mood Results & Data Results & Data Vital Signs (Past 12 Hours) Vital Signs Temp Pulse Pulse Resp BP BP Pulse Ox 05/21/23 15:30 37.0 C 84 18 108/66 91 05/21/23 14:28 88 90/47 L 91 05/21/23 13:47 72/45 L 78/52 L 05/21/23 13:07 36.4 C L 94 H 18 102/64 91 05/21/23 11:26 36.4 C L 94 H 18 102/64 91 05/21/23 08:58 90 05/21/23 08:00 36.7 C 98 H 18 126/75 92 O2 Del Method 05/21/23 15:30 Room Air 05/21/23 14:28 Room Air 05/21/23 13:47 05/21/23 13:07 05/21/23 11:26 Room Air 05/21/23 08:58 05/21/23 08:00 Room Air Laboratory Results 05/21/23 06:27 05/21/23 06:27 PG Care Time/CCT Total # of Minutes Spent Total Time Spent with Patient: Total time spent is greater than 50% in coordination of care (as documented) at patient's floor/unit and/or counseling patient: Coding Level of Care Code 47938 SUB INP/OBS CARE 3/50MIN Diagnoses Back pain M54.9 Elevated troponin R79.89 Combined systolic and diastolic congestive heart failure I50.40 Hypertension I10 Alzheimer disease G30.9; F02.80 Leukemia C95.90
[2023-05-22 06:37] LABS: BUN Creatinine Ratio 17.6 (10-20); Calcium 8.5 mg/dl (8.6-10.3); Creatinine Clr Calc Pharmacy 47.2 ml/min; Est GFR (African American) 62.4 ml/min; Est GFR (Non-African American) 53.8 ml/min; Potassium 3.8 mmol/L (3.5-5.1)
[2023-05-22 06:51] LABS: ANTI-Xa, UFH(UnfractionatedHep < 0.10 IU/ml (0.3-0.7)
[2023-05-22 07:26] LABS: Basophils # (auto) 0.11 K/uL (0.00-0.20); Basophils % (auto) 0.4 %; Eosinophils # (auto) 0.29 K/uL (0.00-0.50); Eosinophils % (auto) 1.1 %; Hematocrit (blood only) 35.2 % (42.0-52.0); Hemoglobin 11.7 g/dl (14.0-18.0); Immature Granulocytes # (auto) 0.08 K/uL (0.01-0.20); Immature Granulocytes % (auto) 0.3 %; Lymphocytes # (auto) 18.66 K/uL (1.20-3.40); Lymphocytes % (auto) 67.6 %; Mean Corpuscular Hemoglobin 32.1 pg (25.0-34.0); Mean Corpuscular Hgb Conc 33.2 g/dL (32.0-36.0); Mean Corpuscular Volume 96.7 fL (80.0-100.0); Mean Platelet Volume 8.9 fL (9.4-12.4); Monocytes # (auto) 2.86 K/uL (0.11-0.59); Monocytes % (auto) 10.4 %; Neutrophils % (auto) 20.2 %; Platelet Count 190 K/uL (130-400); Polychromasia 1+; RDW Coefficient of Variation 13.4 % (11.5-14.5); RDW Standard Deviation 48.1 fL (36.4-46.3); Red Blood Count 3.64 M/uL (4.70-6.10); Smudge Cells Present
[2023-05-22] MEDS: ASPIRIN 81 MG ECTAB PO SCH (08:16)
[2023-05-22] MEDS: ATORVASTATIN 40 MG TAB PO SCH (08:16)
[2023-05-22] MEDS: METOPROLOL SUCC 25MG EXT REL TAB PO SCH (08:17)
[2023-05-22] MEDS: METOPROLOL SUCC 50MG EXT REL TAB PO SCH (08:17)
[2023-05-22] MEDS: QUEtiapine FUMARATE 25 MG TABLET PO SCH (08:17)
[2023-05-22] MEDS: ISOSORBIDE MONO EXTENDED REL 30 MG TABCR PO SCH (08:17)
[2023-05-22] MEDS: LOSARTAN POTASSIUM 50 MG TAB PO SCH (08:18)
[2023-05-22] MEDS ORDERED: FUROSEMIDE 40 MG TAB PO SCH (09:00)
--- NOTE | 2023-05-22 15:03 | Hospitalist Progress Note ---
Date of Service May 22, 2023 Assessment & Plan (1) Back pain: Plan: Now resolved. This probably was his angina equivalent. (2) Elevated troponin: Plan: Significant troponin elevation. Cardiac echo reveals anterior septal regional wall motion abnormalities with mildly depressed ejection fraction. He appears to have suffered an anterior wall [place]. Continue telemetry. Cardiology consultation and recommendations appreciated. Heparin infusion was discontinued on May 21. He is on ARB and metoprolol therapy. Isosorbide mononitrate was also started by cardiology. Parenteral Lasix has been switched to oral dosing (3) Combined systolic and diastolic congestive heart failure: Plan: Treated with parenteral Lasix diuresis. Switched to oral dosing on May 21. Monitor intake and output. Chest x-ray done on May 21 looked better. He is on room air. Will repeat chest x-ray again tomorrow, May 23 (4) Hypertension: Plan: Stable. Continue metoprolol, losartan, isosorbide. He had a hypotensive episode yesterday, May 21, but no recurrence. (5) Alzheimer disease: Plan: Aricept has been of little value here. This has been discontinued. Seroquel 25 mg twice daily has been started and seems to be helping his behavior quite a bit. Supportive care. (6) Leukemia: Plan: Recent diagnosis. White blood cell count is elevated which is chronic. He will continue to follow-up with hematology as an outpatient Plan Awaiting OT and PT assessments. The family is asking for SNF or IPR placement Admission and Anticipated Discharge Date Admission Date: May 19, 2023 Subjective Alert and oriented. No new problems. OT and PT assessments have been requested. Chest x-ray obtained yesterday, May 21, looked better. Will repeat chest x-ray again tomorrow, May 23. Aricept has been switched over to Seroquel and this seems to have helped his agitation quite a bit. He remains on room air. Blood pressure is stable with no further hypotensive episodes. Review of Systems 2 Review of Systems: Constitutional-no fever or chills ENT-no blurred vision, no double vision, no epistaxis, no sore throat Respiratory-no cough, no wheezing, no shortness of breath Cardiac-no palpitations, no chest pain, no syncope GI-no nausea, vomiting, diarrhea, melena, hematochezia -no urinary retention, no urinary incontinence, no dysuria, no hematuria Musculoskeletal-upper back discomfort has resolved Skin-no bruising, no rashes, no pruritus Neuro-no isolated weakness, no paresthesia Psych-baseline Alzheimer's type dementia with intermittent confusion Physical Exam 2 Physical Exam: General-alert and oriented x3, no fever, no chills HEENT-head atraumatic and normocephalic, pupils equal and reactive to light, extraocular muscles intact Neck-no lymphadenopathy or thyromegaly, trachea midline Chest-faint bibasilar inspiratory rales. No wheezing. No rhonchi Cardiac-regular rate and rhythm, normal S1 and S2 Abdomen-normal bowel sounds, nontender, no hepatosplenomegaly Extremities-no cyanosis, clubbing, or edema Neuro-cranial nerves II through XII intact, motor and sensory function within normal limits, strength symmetrical, no focal deficits Psych-normal affect, normal mood Results & Data Results & Data Vital Signs (Past 12 Hours) Vital Signs Temp Pulse Pulse Resp BP BP Pulse Ox 05/22/23 11:03 36.8 C 82 18 106/63 92 05/22/23 09:01 89 05/22/23 07:09 36.8 C 94 H 18 158/96 H 91 05/22/23 03:09 36.6 C 93 H 16 133/70 90 O2 Del Method 05/22/23 11:03 Room Air 05/22/23 09:01 05/22/23 07:09 Room Air 05/22/23 03:09 Room Air Laboratory Results 05/22/23 05:57 05/22/23 05:57 PG Care Time/CCT Total # of Minutes Spent Total Time Spent with Patient: Total time spent is greater than 50% in coordination of care (as documented) at patient's floor/unit and/or counseling patient: Coding Level of Care Code 39074 SUB INP/OBS CARE 3/50MIN Diagnoses Back pain M54.9 Elevated troponin R79.89 Combined systolic and diastolic congestive heart failure I50.40 Hypertension I10 Alzheimer disease G30.9; F02.80 Leukemia C95.90
--- NOTE | 2023-05-22 15:26 | Discharge Summary ---
Date of Service May 22, 2023 Admission HPI Per Admitting Provider Shin is a pleasant 87-year-old male with PMH of HTN, Alzheimer's disease, and recent leukemia diagnosis 2 weeks ago. Patient developed back pain and SOB at rest while lying in bed with around 2300 on 05/18. He reports that the back pain lasted 15 to 20 minutes. No radiation. He describes it as dull, achy. Worse when lying supine. He did not take any medications at this time. No prior experiences like this. He denies prior history of MIs or DVT/PEs. He denies ever having chest pain. Patient with a history of Alzheimer's, however his daughter (Mireya) is at the bedside and reports no acute change in cognitive baseline. She also reports a recent [facility] chronic [facility] Patient reports he does not think he took his morning medications today; helps to manage medications. Elevated blood pressure at 153/101 at time of admission; vitals otherwise stable. ED course: Heparin w/ bolus IVF ROS: Patient endorses upper back pain (resolved) and SOB at rest (resolved). Patient denies fever, chills, sweating, GAYLE, dizziness, lightheadedness, rashes, tick bites, chest pain, chest palpitations, abdominal pain, N/V/D, or numbness and tingling in the arms or legs bilaterally. Patient denies PMHx of CA, DVT/PE, CVA, cancer, and diabetes Principal Diagnosis Acute anterior wall CA, acute on chronic combined systolic and diastolic CHF Discharge Exam General-alert and oriented x3, no fever, no chills HEENT-head atraumatic and normocephalic, pupils equal and reactive to light, extraocular muscles intact Neck-no lymphadenopathy or thyromegaly, trachea midline Chest-faint bibasilar inspiratory rales. No wheezing. No rhonchi Cardiac-regular rate and rhythm, normal S1 and S2 Abdomen-normal bowel sounds, nontender, no hepatosplenomegaly Extremities-no cyanosis, clubbing, or edema Neuro-cranial nerves II through XII intact, motor and sensory function within normal limits, strength symmetrical, no focal deficits Psych-normal affect, normal mood Discharge Data Allergies Allergy/AdvReac Type Severity Reaction Status Date / Time No Known Allergies Allergy Unverified 12/10/17 20:13 Consultations 05/19/23 15:16 ED Decision to Admit Stat 05/20/23 06:21 Consult Cardiology Routine 05/20/23 07:19 Consult Cardiology Routine Ordered Studies 05/19/23 13:04 CT angio chest wo/w con Stat CTA abdomen pelvis w con [CT angio abdomen pelvis w con] Stat Hospital Course (1) Back pain: Now resolved. This probably was his angina equivalent. (2) Elevated troponin: Significant troponin elevation. Cardiac echo reveals anterior septal regional wall motion abnormalities with mildly depressed ejection fraction. He appears to have suffered an anterior wall CA. Continue telemetry. Cardiology consultation and recommendations appreciated. Heparin infusion was discontinued on May 21. He is on ARB and metoprolol therapy. Isosorbide mononitrate was also started by cardiology. Parenteral Lasix has been switched to oral dosing (3) Combined systolic and diastolic congestive heart failure: Treated with parenteral Lasix diuresis. Switched to oral dosing on May 21. Monitor intake and output. Chest x-ray done on May 21 looked better. He is on room air. (4) Hypertension: Stable. Continue metoprolol, losartan, isosorbide. He had a hypotensive episode yesterday, May 21, but no recurrence. (5) Alzheimer disease: Aricept has been of little value here. This has been discontinued. Seroquel 25 mg twice daily has been started and seems to be helping his behavior quite a bit. Supportive care. (6) Leukemia: Recent diagnosis. White blood cell count is elevated which is chronic. He will continue to follow-up with hematology as an outpatient Plan The patient is doing well and the family has opted to take him home. He will be discharged today, May 22 Total Time Total Time Spent Total Time Spent (In Minutes): 45 minutes Discharge Plan Discharge Items Patient Disposition: Home - Home Health Services Reason For Visit: BACK PAIN, SOB Discharge Diagnosis: Acute anterior wall CA, acute on chronic combined systolic and diastolic CHF Activity: Resume your previous activity Non-emergency contact: Primary Care Provider and Guitar Rep[employer]r Call non-emergency contact if: you have any medication questions and your symptoms worsen Follow-up/Referrals: Susan Lugo PA-C [Primary Care Provider] - 05/29/23 1:00 pm (Follow up scheduled 05/29/22 @ 1:[address] [place] [address], [place] [id number]) Diet: Regular and Heart Healthy Addtl Attending Provider Instructions: New medication includes Lasix once daily, isosorbide mononitrate daily, and Seroquel 25 mg twice daily. Aricept has been discontinued. Metoprolol dosage has been increased Pending Studies at Discharge: No Stand-Alone Forms: [facility], Smoking Cessation Medications and DC Order Prescriptions: New metoprolol succinate 100 mg capsule,sprinkle,ER 24hr 100 mg PO DAILY Qty: 30 0RF quetiapine 25 mg Tablet 25 mg PO BID Qty: 60 0RF furosemide 40 mg Tablet 40 mg PO QAM Qty: 30 0RF atorvastatin 40 mg Tablet 40 mg PO QAM Qty: 30 0RF isosorbide mononitrate 30 mg Tablet Extended Release 24 Hr 30 mg PO QAM Qty: 30 0RF nitroglycerin [Nitrostat] 0.4 mg Tablet, Sublingual 0.4 mg sublingual Q5M PRN (Reason: chest pain) Qty: 25 0RF Continued losartan 100 mg tablet 100 mg PO DAILY aspirin 81 mg Capsule 81 mg PO DAILY Discontinued donepezil [Aricept] 5 mg tablet 5 mg PO HS metoprolol succinate 50 mg tablet extended release 24 hr 50 mg PO DAILY hydrochlorothiazide 12.5 mg tablet 12.5 mg Discharge Orders: Discharge Order- CHF (Routine); Ordered 05/22/23 Ordered By: Gamal Deal Admission Data Admit Date/Time: 05/19/23 15:47 Attending Provider: Gamal Deal Admit Provider: Jadyn Asher Primary Care Provider: Susan Lugo Other Providers: Philippe Haddad; Cristobal Hu; Damián Merlos; Garett Bernard; Eduardo Elliott; Abhilash Eric Jr; Reese Ahuja; Henrietta Perea; Elizabeth Sanchez; Kieran Harris; Kieran Irizarry; Rosalino Varma Jennifer M.; Bianca Kaufman; Agustín Gutierres; Eduardo Hudson; Mian Florentino Other Interventions: Discharge Summary Assessment (RN) Last Done: 05/21/23 13:07 Coding Level of Care Code 09285 INP/OBS DISCH >30 MIN Diagnoses Back pain M54.9 Elevated troponin R79.89 Combined systolic and diastolic congestive heart failure I50.40 Hypertension I10 Alzheimer disease G30.9; F02.80 Leukemia C95.90
== END 2023-05-22 16:18 | disposition home or self-care (01) | DRG 280 ==
LOC: ED 11:42 → SUATTDRO 15:47 → EDINP 15:47 → 2S 21:37
DX: E78.5 Hyperlipidemia, unspecified; I25.119 Atherosclerotic heart disease of native coronary artery with unspecified angina pectoris; J44.9 Chronic obstructive pulmonary disease, unspecified; C91.90 Lymphoid leukemia, unspecified not having achieved remission; F02.80 Dementia in other diseases classified elsewhere, unspecified severity, without behavioral disturbance, psychotic disturbance, mood disturbance, and anxiety; Z79.82 Long term (current) use of aspirin; I21.09 ST elevation (STEMI) myocardial infarction involving other coronary artery of anterior wall; I50.43 Acute on chronic combined systolic (congestive) and diastolic (congestive) heart failure; G30.9 Alzheimer's disease, unspecified; Z87.891 Personal history of nicotine dependence; I11.0 Hypertensive heart disease with heart failure